=== PATIENT | male | born 1950 | race Caucasian/White ===

== ENCOUNTER 2016-10-24 09:56 | Emergency (ER) | payer OTHER ==
[2016-10-24 10:29] VITALS: BP 132/71; PULSE 85; TEMP 97.9; BMI 22.4
--- NOTE | 2016-10-24 11:22 | PDOC ---
History of Present Illness - General Chief Complaint: Eye Problem Stated Complaint: LT EYE PAIN Time Seen by Provider: 10/24/16 11:20 History Source: Patient Exam Limitations: No Limitations - History of Present Illness Initial Comments: CHIEF COMPLAINT: 66 y/o male c/o left eye redness since yesterday. HISTORY OF PRESENT ILLNESS: The patient states his eyes are always very dry. He was itching his left eye a lot yesterday and it started to get red. He is on Plavix. He denies all other trauma to the eye, foreign body sensation, changes in vision, presence of floaters/curtain falling, pain to eye. He does not wear contacts or glasses. Vital signs on arrival are within normal limits. REVIEW OF SYSTEMS: GENERAL/CONSTITUTIONAL: No fever/chills. No weakness. No weight change. HEAD, EYES, EARS, NOSE AND THROAT: +left eye redness. No change in vision. No ear pain or discharge. No sore throat. MUSCULOSKELETAL: No joint or muscle swelling or pain. No neck or back pain. SKIN: No rash or easy bruising. NEUROLOGIC: No headache, vertigo, loss of consciousness, or loss of sensation. PHYSICAL EXAM: GENERAL: The patient is awake, alert, and fully oriented, in no acute distress. HEAD: Normal with no signs of trauma. ENT: Pupils equal, round and reactive to light, extraocular movements intact, sclera anicteric. Large subconjunctival hemorrhage encompassing entire conjunctiva. Fleuriscien stain reveals no corneal abrasions or ulcerations. No ptosis or proptosis. EXTREMITIES: Normal range of motion, no edema. NEUROLOGICAL: Normal speech, normal gait. CN II-XII grossly intact. SKIN: Warm, dry, normal turgor, no rashes or lesions noted. Past History - Past Medical History Allergies/Adverse Reactions: Allergies Allergy/AdvReac Type Severity Reaction Status Date / Time No Known Allergies Allergy Verified 10/24/16 10:25 Home Medications: Ambulatory Orders Albuterol Sulfate Inhaler - [Ventolin HFA Inhaler -] 2 inh IH Q4H PRN #30 inh Aspirin [ASA -] 81 mg PO DAILY #0 tab.chew 12/11/13 Clopidogrel Bisulfate [Plavix -] 75 mg PO DAILY #0 tablet 12/11/13 Dexlansoprazole [Dexilant -] 60 mg PO DAILY #0 12/11/13 Ezetimibe/Simvastatin [Vytorin 10-20 mg Tablet] 10 - 20 each PO HS #0 tablet Folic Acid/Vitamin B Comp W-C [Renavit Tablet] 0.8 mg PO DAILY #0 tablet Sevelamer Carbonate [Renvela -] 800 mg PO TID #0 tab 12/11/13 Carvedilol 3.125 mg PO BID 01/27/14 Mirtazapine [Remeron -] 7.5 mg PO HS 01/27/14 Tamsulosin HCl [Flomax -] 0.4 mg PO DAILY 04/10/15 Isosorbide Mononitrate 30 mg PO DAILY 06/21/15 Peg 400/Hypromellose/Glycerin [Artificial Tears Drops] 15 ml OU TID #100 drops 10/24/16 Anemia: No Asthma: Yes Cancer: No Cardiac Disorders: Yes (cabg 2000, stents x 4 2011) CVA: No COPD: Yes CHF: No Dementia: No Diabetes: Yes Dialysis: Yes (tu,f[facility]) GI Disorders: No Disorders: No HTN: Yes Hypercholesterolemia: No Kidney Stones: Yes (ESRD) Liver Disease: No Suicide Attempt (Hx): No Seizures: No Thyroid Disease: No - Surgical History Appendectomy: No Cardiac Surgery: Yes (STENTS X4, TRIPLE BYPASS 2000) Cholecystectomy: No Orthopedic Surgery: No - Immunization History Immunization Up to Date: Yes - Psycho/Social/Smoking Cessation Hx Anxiety: No Suicidal Ideation: No Smoking Status: No Smoking History: Former smoker Have you smoked in the past 12 months: No Number of Cigarettes Smoked Daily: 0 If you are a former smoker, when did you quit?: 2000 Cigars Per Day: 0 Information on smoking cessation initiated: No Hx Alcohol Use: No Drug/Substance Use Hx: No Substance Use Type: None Hx Substance Use Treatment: No *Physical Exam - Vital Signs Last Vital Signs Temp Pulse Resp BP Pulse Ox 97.9 F 85 19 132/71 98 10/24/16 10:26 10/24/16 10:26 10/24/16 10:26 10/24/16 10:26 10/24/16 10:26 Medical Decision Making - Medical Decision Making A/P: 66 y/o male with large left eye subconjunctival hemorrhage. Will send rx for artificial tears. Instructed the patient to avoid rubbing his eyes and that the blood will resolve on its own. Pt instructed to f/u with Dr. Burgess within 1 week and return to the ER with any worsening or concerning symptoms. The patient verbalizes understanding of all instructions, has no further questions and is awaiting discharge. *DC/Admit/Observation/Transfer Diagnosis at time of Disposition: Subconjunctival hemorrhage of left eye - Discharge Dispostion Disposition: HOME Condition at time of disposition: Good - Prescriptions Prescriptions: Peg 400/Hypromellose/Glycerin [Artificial Tears Drops] 15 ml OU TID #100 drops - Referrals Referrals: Terry Burgess MD [Primary Care Provider] - - Patient Instructions Printed Discharge Instructions: DI for Subconjunctival Hemorrhage Additional Instructions: Discharge Instructions: -A prescription was sent to your pharmacy for artificial tears to keep your eyes moist -Try not to scratch your eyes -The blood will go away on its own -Please follow up with Dr. Burgess in 1 week -Return to the ER with any worsening or concerning symptoms.
== END 2016-10-24 12:00 | disposition home or self-care (01) ==
LOC: JERFT 09:56
DX: H11.31 Conjunctival hemorrhage, right eye (principal); I25.10 Atherosclerotic heart disease of native coronary artery without angina pectoris; I13.11 Hypertensive heart and chronic kidney disease without heart failure, with stage 5 chronic kidney disease, or end stage renal disease; N18.6 End stage renal disease; Z99.2 Dependence on renal dialysis; Z95.1 Presence of aortocoronary bypass graft; Z95.5 Presence of coronary angioplasty implant and graft; E11.9 Type 2 diabetes mellitus without complications; J44.9 Chronic obstructive pulmonary disease, unspecified; J45.909 Unspecified asthma, uncomplicated
CPT/HCPCS: 99281-25

== ENCOUNTER 2018-09-17 10:08 | Emergency (ER) | payer OTHER ==
[2018-09-17 10:16] VITALS: BP 150/56; PULSE 78; TEMP 97.6; BMI 24.4
[2018-09-17] MEDS ORDERED: ERYTHROMYCIN 0.5% OPHTHALMIC OINTMENT 3.5 GM TUBE OS ONE (11:40)
[2018-09-17] MEDS ORDERED: ERYTHROMYCIN 0.5% OPHTHALMIC OINTMENT 3.5 GM TUBE ONE (11:41)
--- NOTE | 2018-09-17 11:43 | PDOC ---
History of Present Illness - General Chief Complaint: Eye Problem Stated Complaint: LT EYE PAIN Time Seen by Provider: 09/17/18 11:28 History Source: Patient Exam Limitations: No Limitations - History of Present Illness Initial Comments: 09/17/18 11:38 Complaints of left eye pain. States 2 days ago thinks may have scratched his eye and since that time is had worsening pain. States visual acuity is within normal limits, has no drainage from eye but has progressive worsening of pain. Past History - Past Medical History Allergies/Adverse Reactions: Allergies Allergy/AdvReac Type Severity Reaction Status Date / Time No Known Allergies Allergy Verified 09/17/18 10:13 Home Medications: Ambulatory Orders Albuterol Sulfate Inhaler - [Ventolin HFA Inhaler -] 2 inh IH Q4H PRN #30 inh Aspirin [ASA -] 81 mg PO DAILY #0 tab.chew 12/11/13 Clopidogrel Bisulfate [Plavix -] 75 mg PO DAILY #0 tablet 12/11/13 Dexlansoprazole [Dexilant -] 60 mg PO DAILY #0 12/11/13 Ezetimibe/Simvastatin [Vytorin 10-20 mg Tablet] 10 - 20 each PO HS #0 tablet Folic Acid/Vitamin B Comp W-C [Renavit Tablet] 0.8 mg PO DAILY #0 tablet Sevelamer Carbonate [Renvela -] 800 mg PO TID #0 tab 12/11/13 Carvedilol 3.125 mg PO BID 01/27/14 Mirtazapine [Remeron -] 7.5 mg PO HS 01/27/14 Tamsulosin HCl [Flomax -] 0.4 mg PO DAILY 04/10/15 Isosorbide Mononitrate 30 mg PO DAILY 06/21/15 Peg 400/Hypromellose/Glycerin [Artificial Tears Drops] 15 ml OU TID #100 drops 10/24/16 Anemia: No Asthma: Yes Cancer: No Cardiac Disorders: Yes (cabg 2000, stents x 4 2011) CVA: No COPD: Yes CHF: No Dementia: No Diabetes: Yes Dialysis: Yes (,[facility]) GI Disorders: No Disorders: No HTN: Yes Hypercholesterolemia: No Kidney Stones: Yes (ESRD) Liver Disease: No Seizures: No Thyroid Disease: No - Surgical History Appendectomy: No Cardiac Surgery: Yes (STENTS X4, TRIPLE BYPASS 2000) Cholecystectomy: No Orthopedic Surgery: No - Immunization History Immunization Up to Date: Yes - Suicide/Smoking/Psychosocial Hx Smoking Status: No Smoking History: Never smoked Have you smoked in the past 12 months: No Number of Cigarettes Smoked Daily: 0 If you are a former smoker, when did you quit?: 2000 Cigars Per Day: 0 Information on smoking cessation initiated: No Hx Alcohol Use: No Drug/Substance Use Hx: No Substance Use Type: None Hx Substance Use Treatment: No Review of Systems - Review of Systems Able to Perform ROS?: Yes Is the patient limited Swedish proficient: Yes Constitutional: Yes: See HPI. No: Symptoms Reported, Chills, Fever, Malaise HEENTM: Yes: Symptoms Reported, See HPI, Eye Pain, Tearing. No: Recent change in vision Respiratory: No: Symptoms reported All Other Systems: Reviewed and Negative *Physical Exam - Vital Signs Last Vital Signs Temp Pulse Resp BP Pulse Ox 97.6 F 78 16 150/56 L 100 09/17/18 10:14 09/17/18 10:14 09/17/18 10:14 09/17/18 10:14 09/17/18 10:14 - Physical Exam General Appearance: Yes: Nourished, Appropriately Dressed, Apparent Distress, Mild Distress HEENT: positive: KEN, Normal ENT Inspection, TMs Normal, Pharynx Normal, Other (left eye injected, mildly photophobic but cornea appears intact. Patient is within normal limits. Fluorescein staining with slit lamp exam reveals a 2 mm x 1 mm superficial abrasion at 3:00 over the iris of left eye.) Neck: positive: Supple. 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, Fully Oriented, Alert, Normal Mood/ Affect, Normal Response, Motor Strength 5/5 Moderate Sedation - Procedure Monitoring Vital Signs: Procedure Monitoring Vital Signs Temperature 97.6 F 09/17/18 10:14 Pulse Rate 78 09/17/18 10:14 Respiratory Rate 16 09/17/18 10:14 Blood Pressure 150/56 L 09/17/18 10:14 O2 Sat by Pulse Oximetry (%) 100 09/17/18 10:14 Progress Note - Progress Note Progress Note: corneal abrasion, erythromycin ointment applied-= will see OPTHO tomorrow *DC/Admit/Observation/Transfer Diagnosis at time of Disposition: Cornea abrasion Qualifiers: Encounter type: initial encounter Laterality: left Qualified Code(s): S05.02XA - Injury of conjunctiva and corneal abrasion without foreign body, left eye, initial encounter - Discharge Dispostion Disposition: HOME Condition at time of disposition: Stable Decision to Admit order: No - Referrals Referrals: Terry Burgess MD [Primary Care Provider] - - Patient Instructions Printed Discharge Instructions: DI for Corneal Abrasion Additional Instructions: Rest, avoid rubbing eyes Wash hands, use eye drops as directed, wash hands after use May use eye lubricating drops as often as needed erythromycin ointment, one thin film 3 times a day for 5 days Tylenol or ibuprofen for pain relief Avoid contact with others until redness and discharge is gone from eyes. Followup with ophthalmology in one to 2 days for thorough exam Return to emergency department for worsened pain, swelling, vision problems. - Post Discharge Activity Forms/Work/School Notes: Back to Work
== END 2018-09-17 11:50 | disposition home or self-care (01) ==
LOC: JERFT 10:08
DX: S05.02XA Injury of conjunctiva and corneal abrasion without foreign body, left eye, initial encounter (principal); I25.10 Atherosclerotic heart disease of native coronary artery without angina pectoris; I13.11 Hypertensive heart and chronic kidney disease without heart failure, with stage 5 chronic kidney disease, or end stage renal disease; N18.6 End stage renal disease; Z99.2 Dependence on renal dialysis; Z95.1 Presence of aortocoronary bypass graft; Z95.5 Presence of coronary angioplasty implant and graft; E11.9 Type 2 diabetes mellitus without complications; J44.9 Chronic obstructive pulmonary disease, unspecified; J45.909 Unspecified asthma, uncomplicated; Z79.01 Long term (current) use of anticoagulants
CPT/HCPCS: 99281-25

== ENCOUNTER 2018-10-12 06:46 | Inpatient (IN) | payer OTHER ==
--- NOTE | 2018-10-12 07:37 | PDOC ---
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 ENT: Ears normal, nares patent, oropharynx clear without exudates. Moist mucous membranes. NECK: Normal range of motion, supple, no nuchal rigidity LUNGS: Breath sounds equal, clear to auscultation bilaterally. No wheezes, and no crackles. HEART:Regular rate and rhythm, normal S1 and S2 without murmur, rub or gallop. ABDOMEN: Soft, nontender, normoactive bowel sounds. EXTREMITIES: Normal range of motion, no edema. NEUROLOGICAL: Cranial nerves II through XII grossly intact. Normal speech. No focal neurological deficits. SKIN: well healed surgical scar 10/12/18 08:08 - Medical Decision Making 10/12/18 08:09 Pt is tearful and seems confused Pt does follow commands, has no complaints of pain It is unclear the cause of this patients presentation No fever to suggest meningitis or encephalitis Will do CT head to r/o intracranial pathology Pt missed dialysis today on account of his mental state Will need to contact Dr Ivory marks for dialysis today Will r/o ACS or other electrolyte abnormality EKG - NSR rate of 93 bpm, LAD, prominent t waves precordial leads, no st elevation or depression, lateral t wave inversion 10/12/18 08:39 Laboratory Tests 10/12/18 10/12/18 10/12/18 07:27 07:40 07:40 WBC 9.8 Hgb 15.6 Hct 44.8 D Plt Count 112 L POC Glucometer 144 Uric Acid Ammonia Creatine Kinase 296 Troponin I 0.03 10/12/18 10/12/18 07:40 07:40 WBC Hgb Hct Plt Count POC Glucometer Uric Acid 6.0 Ammonia 28.50 Creatine Kinase Troponin I 10/12/18 08:[address] Olmedo Pt apparently fell at dialysis today and was acting confused Will arrange HD CT - no acute intracranial pathology, chronic left frontal infarct Will admit Will treat hyperkalemia
--- NOTE | 2018-10-12 07:41 | PDOC ---
History of Present Illness - General Chief Complaint: Altered Mental Status Stated Complaint: AMS Time Seen by Provider: 10/12/18 07:07 History Source: Old Records, Other (Dialysis) Exam Limitations: Clinical Condition - History of Present Illness Initial Comments: 10/12/18 09:50 Pt is a 68yo M with PMH of ESRD on HD (T,TH,S), CAD s/p Stent and CABG, HTN, HLD , DM? BIBA from [facility] for AMS. Pt is incoherent and stating that he is seeing things when he closes his eyes. When using japanese interpreter, pt kept stating that he came from dialysis and was talking to Chris and seeing his mother. Per Dialysis nurse, pt stated he fell at home and was not oriented at all when he usually is, with BP 203/108 so they sent him here. Pt is not complaining of any pain, just seeing and hearing things. Denies changes in vision, chest pain, seeing floaters, headache, sob, abdominal pain, n/v/d. Is anuric. PMD: Jenifer Renal: Sarkis PMH: see hpi PSH: see hpi Meds: see med rec Allergies: nkda 10/12/18 10:20 Past History - Past Medical History Allergies/Adverse Reactions: Allergies Allergy/AdvReac Type Severity Reaction Status Date / Time No Known Allergies Allergy Verified 10/12/18 07:22 Home Medications: Ambulatory Orders Aspirin Coated [Ecotrin -] 81 mg PO DAILY 10/12/18 Clopidogrel Bisulfate [Plavix] 75 mg PO DAILY 10/12/18 Dialyvite Tablet 1 tab DAILY 10/12/18 Folic Acid - 1 mg PO DAILY 10/12/18 Metoprolol Succinate [Toprol Xl] 25 mg PO 10/12/18 Sevelamer Carbonate [Renvela] 800 mg PO TID 10/12/18 Sodium Polystyrene 15 mg PO 10/12/18 Tamsulosin HCl [Flomax] 0.4 mg PO DAILY 10/12/18 Anemia: No Asthma: Yes Cancer: No Cardiac Disorders: Yes (cabg 2000, stents x 4 2011) CVA: No COPD: Yes CHF: No Dementia: No Diabetes: Yes Dialysis: Yes (,sun) GI Disorders: No Disorders: No HTN: Yes Hypercholesterolemia: No Kidney Stones: Yes (ESRD) Liver Disease: No Seizures: No Thyroid Disease: No - Surgical History Appendectomy: No Cardiac Surgery: Yes (STENTS X4, TRIPLE BYPASS 2000) Cholecystectomy: No Orthopedic Surgery: No - Immunization History Immunization Up to Date: Yes - Suicide/Smoking/Psychosocial Hx Smoking Status: No Smoking History: Unknown if ever smoked Have you smoked in the past 12 months: No Number of Cigarettes Smoked Daily: 0 If you are a former smoker, when did you quit?: 2000 Cigars Per Day: 0 Information on smoking cessation initiated: No Hx Alcohol Use: No Drug/Substance Use Hx: No Substance Use Type: None Hx Substance Use Treatment: No Review of Systems - Review of Systems Able to Perform ROS?: No *Physical Exam - Vital Signs Last Vital Signs Temp Pulse Resp BP Pulse Ox 97.3 F L 97 H 18 138/80 98 10/12/18 07:17 10/12/18 06:51 10/12/18 06:51 10/12/18 06:51 10/12/18 06:51 - Physical Exam General Appearance: Yes: Nourished, Appropriately Dressed, Moderate Distress HEENT: positive: EOMI, KEN, Normal ENT Inspection Neck: positive: Trachea midline, Supple. negative: Lymphadenopathy (R), Lymphadenopathy (L) Respiratory/Chest: positive: Lungs Clear, Normal Breath Sounds. negative: Crackles, Rales, Wheezing Cardiovascular: positive: Regular Rhythm, Regular Rate, S1, S2. negative: Edema , JVD, Murmur Vascular Pulses: Carotid (R): 2+, Carotid (L): 2+, Dorsalis-Pedis (R): 2+, Doralis-Pedis (L): 2+ Gastrointestinal/Abdominal: positive: Normal Bowel Sounds, Soft. negative: Tender Extremity: positive: Normal Capillary Refill, Other (palpable thrill LUE). negative: Pedal Edema, Swelling Integumentary: positive: Normal Color, Dry, Warm. 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 negative: Normal Mood/Affect Moderate Sedation - Procedure Monitoring Vital Signs: Procedure Monitoring Vital Signs Temperature 97.3 F L 10/12/18 07:17 Pulse Rate 97 H 10/12/18 06:51 Respiratory Rate 18 10/12/18 06:51 Blood Pressure 138/80 10/12/18 06:51 O2 Sat by Pulse Oximetry (%) 98 10/12/18 06:51 ED Treatment Course - LABORATORY CBC & Chemistry Diagram: 10/12/18 07:40 10/12/18 07:40 - ADDITIONAL ORDERS Additional order review: Laboratory Results 10/12/18 07:27 POC Glucometer 144 10/12/18 07:27 POC Glucometer 144 - RADIOLOGY Radiology Studies Ordered: Category Date Time Status HEAD CT WITHOUT CONTRAST [CT] Stat CT Scan 10/12/18 07:30 Ordered CHEST X-RAY PORTABLE* [RAD] Stat Radiology 10/12/18 07:30 Ordered Medical Decision Making - Medical Decision Making 10/12/18 10:02 Pt is a 68yo M with PMH of ESRD on HD (T,TH,S), CAD s/p Stent and CABG, HTN, HLD , DM? BIBA from [facility] for AMS. Pt is incoherent and stating that he is seeing things when he closes his eyes. When using japanese interpreter, pt kept stating that he came from dialysis and was talking to Chris and seeing his mother. Per Dialysis nurse, pt stated he fell at home and was not oriented at all when he usually is, so they sent him here. Pt is not complaining of any pain, just seeing and hearing things. Vitals: slightly hypothermic, hypertensive PE: AOx3. Benign abdominal exam, no fluid wave. Following commands. Ddx includes but not limited to encephalopathy, intracranial mass/bleed/lesion, hypertensive emergency/urgency, metabolic disturbance, electrolyte imbalance, infectious cause, meningitis, acs -sepsis w/u, ammonia, uric acid -ekg, CT head, CXR Tried calling daughter and , no answer Called Dialysis center which told some history EKG: nsr, 93bpm. QTc 465. peaked T in V1-V3. normal QRS (96). no jeremy or depressions. Called Dr. Mike Sanchez employee relations consultant who stated that he was called by dialysis who said that he was told pt fell and was confused. Labs significant for K 6.1 and Cr 11. -calcium gluconate. Dr. Mckeon recommended insulin as well. Will give D50 and 10 units. labetalol, nicardepine drip. Could have hypertensive encephalopathy. will consult ICU and call Dr. Kent CXR- congestive changes, more prominent mediastinum however could be due to low inspiratory effort. CT head: no acute pathology, small chronic l frontal cortical infarct medially. mild to mod periventricular chornoic microvascular ischemic changes. 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 will call back 10/12/18 19:34 BP getting better with medications. Does not meet requirement for ICU. Pt endorsed to Dr Kent will admit tele. Will hopefully get dialysis today Selected Entries 10/12/18 11:44 Pulse Rate [ 83 Apical] Respiratory 18 Rate Blood Pressure 159/73 [Right Arm] O2 Sat by Pulse 98 Oximetry (%) *DC/Admit/Observation/Transfer Diagnosis at time of Disposition: Hyperkalemia Altered mental status Qualifiers: Altered mental status type: delirium Qualified Code(s): R41.0 - Disorientation , unspecified - Discharge Dispostion Condition at time of disposition: Good - Referrals - Patient Instructions - Post Discharge Activity
[2018-10-12 08:13] LABS: BASO % 0.4 % (0-2.0); EOS % 0.7 % (0-4.5); HEMATOCRIT 44.8 % (35.4-49); HEMOGLOBIN 15.6 GM/dL (11.7-16.9); MCH 35.8 pg (25.7-33.7); MCHC 34.9 g/dl (32.0-35.9); MEAN CELL VOLUME 102.6 fl (80-96); MEAN PLT VOLUME 8.7 fl (7.5-11.1); MONO % 5.6 % (3.8-10.2); NEUT % 87.3 % (42.8-82.8); PLATELET COUNT 112 K/MM3 (134-434); RBC 4.37 M/mm3 (4.00-5.60); RDW 15.8 % (11.9-15.9); WHITE BLOOD COUNT 9.8 K/mm3 (4.0-10.0)
[2018-10-12 08:15] LABS: VENOUS PC02 38.9 mmHg (41-51); VENOUS PH 7.28 (7.31-7.41); VENOUS PO2 72.4 mmHg (30-40)
[2018-10-12 08:42] LABS: ALBUMIN 4.5 g/dl (3.4-5.0); ALK PHOS 109 U/L (45-117); ANION GAP 12 MMOL/L (8-16); BILIRUBIN,TOTAL 0.8 mg/dL (0.2-1); BLOOD UREA NITROGEN 60 mg/dL (7-18); CALCIUM 8.2 mg/dL (8.5-10.1); CHLORIDE 104 mmol/L (98-107); CO2 18 mmol/L (21-32); GLUCOSE,RANDOM 136 mg/dL (74-106); MAGNESIUM 2.7 mg/dL (1.8-2.4); SGOT/AST 19 U/L (15-37); SGPT/ALT 20 U/L (13-61); SODIUM 134 mmol/L (136-145); TOT PROT 7.9 g/dl (6.4-8.2)
[2018-10-12 08:46] LABS: CREATININE 11.9 mg/dL (0.55-1.3)
[2018-10-12 08:47] LABS: POTASSIUM 6.3 mmol/L (3.5-5.1)
[2018-10-12] MEDS ORDERED: INSULIN REGULAR HUMAN 100 UNITS/ML *VIAL IVPUSH ONE (08:59)
[2018-10-12] MEDS ORDERED: CALCIUM GLUCONATE 10% - 1,000 MG/10 ML VIAL IVPUSH ONE (08:59)
[2018-10-12] MEDS ORDERED: DEXTROSE 50%-WATER - 25 GM/50 ML VIAL IVPUSH ONE (08:59)
[2018-10-12] MEDS ORDERED: DEXTROSE 50%-WATER - 25 GM/50 ML VIAL ONE (09:23)
[2018-10-12] MEDS ORDERED: CALCIUM GLUCONATE 10% - 1,000 MG/10 ML VIAL ONE (09:23)
[2018-10-12] MEDS ORDERED: INSULIN REGULAR HUMAN 100 UNITS/ML *VIAL ONE (09:24)
--- NOTE | 2018-10-12 09:27 | CONSULT ---
Consult - text type - Consultation Consultation Note: Renal Consult for ESRD/Hyperkalemia This is a 68 year old Gentleman with hx of ESRD on HD, COPD, Hypertension, CAD who presented with fall and AMS and found to have hypertension urgency/hypertension, encephalopathy and hyperkalemia. Home Medications Medication Instructions Recorded Unobtainable 10/12/18 Vital Signs Temperature 97.6 F 10/12/18 07:56 Pulse Rate 95 H 10/12/18 08:31 Respiratory Rate 20 10/12/18 08:31 Blood Pressure 195/85 H 10/12/18 08:31 O2 Sat by Pulse Oximetry (%) 98 10/12/18 08:31 Intake & Output 10/09/18 10/10/18 10/11/18 10/12/18 23:59 23:59 23:59 23:59 Weight 74.843 kg CBC, BMP 10/12/18 07:40 10/12/18 07:40 Current Medications Nicardipine HCl 25 mg/ (Dextrose) 250 mls @ 25 mls/hr IVPB TITR NIKO; Protocol 68 year old Gentleman with hx of ESRD on HD, COPD, Hypertension, CAD who presented with fall and AMS and found to have hypertension urgency/ hypertension, encephalopathy and hyperkalemia. #Altered Mental status #Hypertensive Emergency #s/p Fall #Hyperkalemia #ESRD on HD #Metabolic acidosis Recommend ICU admission for AMS in setting of hypertensive emergency Start nicardipine gtt Will need urgent HD with UF for hyperkalemia and hypertension unlikely that uremia is cause of AMS given BUN is only 60 Neurology consult f/u cultures Goal BP ~170-180 systolic Thank you
[2018-10-12] MEDS ORDERED: SODIUM CHLORIDE 250 ML IV PRN (09:30)
[2018-10-12] MEDS ORDERED: NICARDIPINE 25 MG in DEXTROSE 5%-WATER - 240 ML IVPB SCH (09:30)
[2018-10-12] MEDS ORDERED: CARVEDILOL 3.125 MG TABLET (FP) PO ONE (09:37)
[2018-10-12] MEDS ORDERED: LABETALOL HCL 5 MG/1 ML (100MG/20 ML VIAL) IVPUSH ONE (09:37)
[2018-10-12] MEDS ORDERED: CARVEDILOL 3.125 MG TABLET (FP) ONE (09:48)
[2018-10-12] MEDS ORDERED: LABETALOL HCL 5 MG/1 ML (200MG/40ML VIAL) IVPB ONE (09:48)
[2018-10-12 10:11] LABS: INR 1.07 (0.82-1.09)
[2018-10-12 10:18] LABS: ACTIVATED PTT 26.7 SECONDS (25.2-36.5)
--- NOTE | 2018-10-12 15:34 | CONSULT ---
Consult - text type - Consultation Consultation Note: NEUROLOGY CONSULTATION is greatly appreciated: Events reviewed and patient examined with his at the bedside who aides in translation. 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 Admitted after found him confused yesterday morning and he fell at HD (not performed). CT of head (reviewed): Mild atrophy with diffuse periventricular microvascular changes Labs sig for K+=6.9 mg%, Cr= 11.9 mg% and EFH=353.6 DRAGAN: No evidence of head trauma. Cor reg. AV fistula patent with bruit. No carotid bruit NEURO: Awake, alert. Follows all commands. Fluent, confused speech. Ox Annona's. September 2018. Trump. Recalls SJ after 2 mins CN: II-XII normal Motor: No drift. Frequent myoclonic jerks. Normal strength. Areflexic in legs. Plantars silent. Coord: No FTN dystaxia Sensory: Feels vibration at the ankles IMP: Non-focal exam Moderate, B/L cerebral dysfunction with features of Toxic-metabolic encephalopathy (probably uremia + infection). SUGGEST: Observe after Dialysis today Await blood cultures/ ID consult. Check B12, TSH, Ammonia, spot K+ level. If no improvement after HD- repeat CT of head, consider empirical antibiotics. Continue BP control. Thank you very much, Mike Bernstein mD
[2018-10-12 15:35] VITALS: BMI 25.4
--- NOTE | 2018-10-12 17:01 | EKG ---
Test Reason : Blood Pressure : / mmHG Vent. Rate : 093 BPM Atrial Rate : 093 BPM P-R Int : 160 ms QRS Dur : 096 ms QT Int : 374 ms P-R-T Axes : 021 -30 097 degrees QTc Int : 465 ms NORMAL SINUS RHYTHM LEFT AXIS DEVIATION ABNORMAL ECG WHEN COMPARED WITH ECG OF 18-MAY-2015 05:08, QRS AXIS SHIFTED LEFT T WAVE INVERSION LESS EVIDENT IN LATERAL LEADS Confirmed by ABHISHEK ABURTO, EMANUEL ([id number]) on 10/12/2018 5:01:00 PM Referred By: Confirmed By:EMANUEL WEISS MD
--- NOTE | 2018-10-12 21:47 | HP ---
Admitting History and Physical - Past Medical History Cardiovascular: Yes: CAD, CHF, HTN, Hyperlipdemia Pulmonary: Yes: COPD Renal/: Yes: Renal Failure, Hemodialysis Psych: Yes: Anxiety Endocrine: Yes: Diabetes Mellitus - Past Surgical History Past Surgical History: Yes: AV Fistula/Graft (multiple, non functional), CABG, Stent (cardiac) - Smoking History Smoking history: Unknown if ever smoked Have you smoked in the past 12 months: No Aproximately how many cigarettes per day: 0 If you are a former smoker, when did you quit?: 2000 - Alcohol/Substance Use Hx Alcohol Use: No History of Substance Use: reports: None - Social History ADL: Independent History of Recent Travel: No Home Medications - Allergies Allergies/Adverse Reactions: Allergies Allergy/AdvReac Type Severity Reaction Status Date / Time No Known Allergies Allergy Verified 10/12/18 07:22 - Home Medications Home Medications: Ambulatory Orders Aspirin Coated [Ecotrin -] 81 mg PO DAILY 10/12/18 Clopidogrel Bisulfate [Plavix] 75 mg PO DAILY 10/12/18 Dialyvite Tablet 1 tab DAILY 10/12/18 Folic Acid - 1 mg PO DAILY 10/12/18 Metoprolol Succinate [Toprol Xl] 25 mg PO 10/12/18 Sevelamer Carbonate [Renvela] 800 mg PO TID 10/12/18 Sodium Polystyrene 15 mg PO 10/12/18 Tamsulosin HCl [Flomax] 0.4 mg PO DAILY 10/12/18 Family Disease History - Family Disease History Family Disease History: [place]: Brother (ESRD), Other: Mother (ESRD) Physical Examination Vital Signs: Vital Signs Temperature 97.6 F 10/12/18 18:00 Pulse Rate 93 H 10/12/18 19:37 Respiratory Rate 18 10/12/18 19:37 Blood Pressure 123/60 10/12/18 19:37 O2 Sat by Pulse Oximetry (%) 98 10/12/18 12:45 Labs: CBC, BMP 10/12/18 07:40 10/12/18 07:40
[2018-10-12] MEDS: INSULIN SLIDING SCALE (NOVOLOG) 1 VIAL SQ SCH (22:22)
[2018-10-13] MEDS: INSULIN SLIDING SCALE (NOVOLOG) 1 VIAL SQ SCH ×4 (07:02→22:02)
[2018-10-13 07:56] LABS: BASO % 0.4 % (0-2.0); EOS % 2.5 % (0-4.5); HEMATOCRIT 43.9 % (35.4-49); HEMOGLOBIN 15.2 GM/dL (11.7-16.9); LYMPH % 14.6 % (8-40); MCH 35.1 pg (25.7-33.7); MCHC 34.6 g/dl (32.0-35.9); MEAN CELL VOLUME 101.5 fl (80-96); MEAN PLT VOLUME 8.2 fl (7.5-11.1); NEUT % 73.5 % (42.8-82.8); PLATELET COUNT 106 K/MM3 (134-434); RBC 4.32 M/mm3 (4.00-5.60); RDW 15.7 % (11.9-15.9); WHITE BLOOD COUNT 6.3 K/mm3 (4.0-10.0)
[2018-10-13] MEDS: SEVELAMER CARBONATE 800 MG TAB (FP) PO SCH ×3 (08:00→19:47)
[2018-10-13 08:28] LABS: ALBUMIN 4.1 g/dl (3.4-5.0); ALK PHOS 100 U/L (45-117); ANION GAP 8 MMOL/L (8-16); BLOOD UREA NITROGEN 25 mg/dL (7-18); CALCIUM 8.5 mg/dL (8.5-10.1); CHLORIDE 102 mmol/L (98-107); CO2 30 mmol/L (21-32); GLUCOSE,RANDOM 96 mg/dL (74-106); POTASSIUM 4.8 mmol/L (3.5-5.1); SGOT/AST 28 U/L (15-37); SGPT/ALT 26 U/L (13-61); SODIUM 140 mmol/L (136-145); TOT PROT 7.4 g/dl (6.4-8.2)
[2018-10-13 09:37] LABS: CREATININE 7.6 mg/dL (0.55-1.3)
--- NOTE | 2018-10-13 11:39 | PN ---
Progress Note (short form) - Note Progress Note: Renal follow up for ESRD/AMS Pt seen and examined at the bedside awake and alert oriented x 3 no acute complaints s/p dialysis yesterday, tolerated it well BP much improved Vital Signs Temperature 97.8 F 10/13/18 06:00 Pulse Rate 88 10/13/18 06:00 Respiratory Rate 20 10/13/18 06:00 Blood Pressure 147/71 10/13/18 06:00 O2 Sat by Pulse Oximetry (%) 98 10/12/18 21:00 Intake & Output 10/10/18 10/11/18 10/12/18 10/13/18 23:59 23:59 23:59 23:59 Intake Total 360 Balance 360 Weight 61.054 kg NAD awake and alert neck supple RRR CTA soft NT/ND no LE edema CBC, BMP 10/13/18 06:30 10/13/18 06:30 Current Medications Acetaminophen (Tylenol -) 650 mg PO Q4H PRN PRN Reason: PAIN SCALE 1-5 Aspirin (Ecotrin -) 81 mg PO DAILY [facility] Clopidogrel Bisulfate (Plavix -) 75 mg PO DAILY [facility] Folic Acid (Folic Acid -) 1 mg PO DAILY [facility] Heparin Sodium (Porcine) (Heparin -) 5,000 unit SQ BID [facility] Sodium Chloride (Normal Saline -) 250 mls @ 3,000 mls/hr IV PRN PRN PRN Reason: Hypotension during Dialysis Stop: 10/13/18 09:30 Insulin Aspart (Novolog Vial Sliding Scale -) 1 vial SQ ACHS [facility]; Protocol Last Admin: 10/13/18 07:02 Dose: Not Given Metoprolol Succinate (Toprol Xl -) 25 mg PO DAILY [facility] Multivitamins/Minerals (Theragran-M) 1 each PO DAILY [facility] Sevelamer Carbonate (Renvela -) 800 mg PO TIDCM [facility] Tamsulosin HCl (Flomax -) 0.4 mg PO DAILY@0830 [facility] 68 year old Gentleman with hx of ESRD on HD, COPD, Hypertension, CAD who presented with fall and AMS and found to have hypertension urgency/ hypertension, encephalopathy and hyperkalemia. #Altered Mental status of unclear etiology #Hypertensive Emergency #s/p Fall #Hyperkalemia #ESRD on HD #Metabolic acidosis Mental status is much improved CT head w/o evidence of acute pathology no fever, no leukocytosis, cultures remains pending tolerated dialysis well yesterday, no acute need for further [employer]ATE today Neurology follow up continue Metoprolol, monitor BP Thank you
[2018-10-13] MEDS: FOLIC ACID 1 MG TABLET (FP) PO SCH (11:49)
[2018-10-13] MEDS: CLOPIDOGREL BISULFATE 75 MG TABLET (FP) PO SCH (11:49)
[2018-10-13] MEDS: HEPARIN NA (PORCINE) 5,000 UNITS/ML 1ML VIAL SQ SCH ×2 (11:50→22:02)
[2018-10-13] MEDS: MULTIVITAMINS THER W-MINERALS COMBO TABLET (FP) PO SCH (11:50)
[2018-10-13] MEDS: metoPROLOL SUCCINATE 25 MG TAB.SR.24H (FP) PO SCH (11:50)
[2018-10-13] MEDS: TAMSULOSIN HCL 0.4 MG CAP PO SCH (11:50)
[2018-10-13] MEDS: ASPIRIN COATED 81 MG TABLET.EC PO SCH (11:50)
--- NOTE | 2018-10-13 23:37 | PN ---
Progress Note, Physician History of Present Illness: Pt eating - Current Medication List Current Medications: Active Medications Acetaminophen (Tylenol -) 650 mg PO Q4H PRN PRN Reason: PAIN SCALE 1-5 Aspirin (Ecotrin -) 81 mg PO DAILY [facility] Last Admin: 10/13/18 11:50 Dose: 81 mg Clopidogrel Bisulfate (Plavix -) 75 mg PO DAILY [facility] Last Admin: 10/13/18 11:49 Dose: 75 mg Folic Acid (Folic Acid -) 1 mg PO DAILY [facility] Last Admin: 10/13/18 11:49 Dose: 1 mg Heparin Sodium (Porcine) (Heparin -) 5,000 unit SQ BID [facility] Last Admin: 10/13/18 22:02 Dose: 5,000 unit Sodium Chloride (Normal Saline -) 250 mls @ 3,000 mls/hr IV PRN PRN PRN Reason: Hypotension during Dialysis Stop: 10/13/18 09:30 Insulin Aspart (Novolog Vial Sliding Scale -) 1 vial SQ ACHS [facility]; Protocol Last Admin: 10/13/18 22:02 Dose: Not Given Metoprolol Succinate (Toprol Xl -) 25 mg PO DAILY [facility] Last Admin: 10/13/18 11:50 Dose: 25 mg Multivitamins/Minerals (Theragran-M) 1 each PO DAILY [facility] Last Admin: 10/13/18 11:50 Dose: 1 each Sevelamer Carbonate (Renvela -) 800 mg PO TIDCM [facility] Last Admin: 10/13/18 19:47 Dose: 800 mg Tamsulosin HCl (Flomax -) 0.4 mg PO DAILY@0830 [facility] Last Admin: 10/13/18 11:50 Dose: 0.4 mg - Objective Vital Signs: Vital Signs Temperature 97.9 F 10/13/18 22:01 Pulse Rate 78 10/13/18 22:01 Respiratory Rate 18 10/13/18 22:01 Blood Pressure 159/79 10/13/18 22:01 O2 Sat by Pulse Oximetry (%) 98 10/12/18 21:00 Neck: Yes: WNL, Supple Cardiovascular: Yes: WNL, Regular Rate and Rhythm Respiratory: Yes: WNL, Regular, CTA Bilaterally Gastrointestinal: Yes: WNL, Normal Bowel Sounds, Soft Edema: No Labs: CBC, BMP 10/13/18 06:30 10/13/18 06:30 INR, PTT INR 1.07 (0.82-1.09) 10/12/18 07:40 Problem List - Problems (1) Altered mental status Assessment/Plan: CT scan head did not show any acute pathology Mental status improved Metabolic encephalopathy Code(s): R41.82 - ALTERED MENTAL STATUS, UNSPECIFIED Qualifiers: Altered mental status type: delirium Qualified Code(s): R41.0 - Disorientation, unspecified (2) Elevated troponin Assessment/Plan: Due to renal disease Check echo Cardio consult Code(s): R74.8 - ABNORMAL LEVELS OF OTHER SERUM ENZYMES (3) Anemia in ESRD (end-stage renal disease) Assessment/Plan: H/H stable Code(s): N18.6 - END STAGE RENAL DISEASE; D63.1 - ANEMIA IN CHRONIC KIDNEY DISEASE (4) CAD (coronary artery disease) Assessment/Plan: Cont plavix Code(s): I25.10 - ATHSCL HEART DISEASE OF [place] CORONARY ARTERY W/O ANG PCTRS Qualifiers: Coronary Disease-Associated Artery/Lesion type: [place] artery [place] vs. transplanted heart: [place] heart Associated angina: without angina Qualified Code(s): I25.10 - Atherosclerotic heart disease of [place] coronary artery without angina pectoris (5) COPD (chronic obstructive pulmonary disease) Assessment/Plan: Stable Code(s): J44.9 - CHRONIC OBSTRUCTIVE PULMONARY DISEASE, UNSPECIFIED (6) ESRD on hemodialysis Assessment/Plan: As per renal Pt on hemodialysis Code(s): N18.6 - END STAGE RENAL DISEASE; Z99.2 - DEPENDENCE ON RENAL DIALYSIS (7) Hyperlipidemia Code(s): E78.5 - HYPERLIPIDEMIA, UNSPECIFIED Qualifiers: Hyperlipidemia type: unspecified hyperlipidemia Qualified Code(s): E78.5 - Hyperlipidemia, unspecified (8) Hypertension Assessment/Plan: BP stable Cont toprol Code(s): I10 - ESSENTIAL (PRIMARY) HYPERTENSION Qualifiers: Hypertension type: essential hypertension Qualified Code(s): I10 - Essential (primary) hypertension (9) Type 2 diabetes mellitus Assessment/Plan: Cont sliding scale w/ coverage Check HgA1c Code(s): E11.9 - TYPE 2 DIABETES MELLITUS WITHOUT COMPLICATIONS Qualifiers: Diabetes mellitus complication status: without complication Qualified Code( s): E11.9 - Type 2 diabetes mellitus without complications
[2018-10-14] MEDS: INSULIN SLIDING SCALE (NOVOLOG) 1 VIAL SQ SCH ×4 (06:46→21:47)
[2018-10-14 08:17] LABS: BASO % 0.5 % (0-2.0); HEMOGLOBIN 15.7 GM/dL (11.7-16.9); MCHC 34.9 g/dl (32.0-35.9); MEAN CELL VOLUME 103.3 fl (80-96); MEAN PLT VOLUME 8.5 fl (7.5-11.1); MONO % 8.5 % (3.8-10.2); PLATELET COUNT 109 K/MM3 (134-434); RBC 4.36 M/mm3 (4.00-5.60); RDW 15.5 % (11.9-15.9); WHITE BLOOD COUNT 6.5 K/mm3 (4.0-10.0)
[2018-10-14 08:49] LABS: ALBUMIN 4.1 g/dl (3.4-5.0); ALK PHOS 96 U/L (45-117); ANION GAP 10 MMOL/L (8-16); BILIRUBIN,TOTAL 0.8 mg/dL (0.2-1); BLOOD UREA NITROGEN 53 mg/dL (7-18); CALCIUM 8.6 mg/dL (8.5-10.1); CHLORIDE 100 mmol/L (98-107); CO2 27 mmol/L (21-32); GLUCOSE,RANDOM 137 mg/dL (74-106); POTASSIUM 5.3 mmol/L (3.5-5.1); SGOT/AST 23 U/L (15-37); SGPT/ALT 26 U/L (13-61); SODIUM 137 mmol/L (136-145); TOT PROT 7.4 g/dl (6.4-8.2)
--- NOTE | 2018-10-14 08:52 | CON.CARD ---
Consult Consult Specialty:: Cardiology Referred by:: Dr. Kent Reason for Consultation:: Cardiac evaluation - History of Present Illness Chief Complaint: Disorientation History of Present Illness: "68yo M with PMH of ESRD on HD (,,), CAD s/p Stent and CABG, HTN, HLD, DM? BIBA from [facility] for AMS. Pt is incoherent and stating that he is seeing things when he closes his eyes. When using cosmetic sales assistant, pt kept stating that he came from dialysis and was talking to Chris and seeing his mother. Per Dialysis nurse, pt stated he fell at home and was not oriented at all when he usually is, with BP 203/108 so they sent him here. Pt is not complaining of any pain, just seeing and hearing things. Denies changes in vision, chest pain, seeing floaters, headache, sob, abdominal pain, n/v/d. Is anuric. " Above ER history reviewed. He denies CP, SOB, fevers, chills. He reports being at HD and not being able to get through a gait at HD because of "heavy wind". Head CT negative. He reports being started on an antibiotic for an eye infection . No focal neuro deficits. - History Source History Provided By: Patient, Medical Record - Past Medical History Cardio/Vascular: Yes: CAD, CHF, HTN, Hyperlipdemia Pulmonary: Yes: COPD Renal/: Yes: Renal Failure, Hemodialysis Psych: Yes: Anxiety Endocrine: Yes: Diabetes Mellitus - Past Surgical History Past Surgical History: Yes: AV Fistula/Graft (multiple, non functional), CABG, Stent (cardiac) - Alcohol/Substance Use Hx Alcohol Use: No History of Substance Use: reports: None - Smoking History Smoking history: Unknown if ever smoked Have you smoked in the past 12 months: No Aproximately how many cigarettes per day: 0 If you are a former smoker, when did you quit?: 2000 - Social History ADL: Independent History of Recent Travel: No Home Medications - Allergies Allergies/Adverse Reactions: Allergies Allergy/AdvReac Type Severity Reaction Status Date / Time No Known Allergies Allergy Verified 10/12/18 07:22 - Home Medications Home Medications: Ambulatory Orders Aspirin Coated [Ecotrin -] 81 mg PO DAILY 10/12/18 Clopidogrel Bisulfate [Plavix] 75 mg PO DAILY 10/12/18 Dialyvite Tablet 1 tab DAILY 10/12/18 Folic Acid - 1 mg PO DAILY 10/12/18 Metoprolol Succinate [Toprol Xl] 25 mg PO 10/12/18 Sevelamer Carbonate [Renvela] 800 mg PO TID 10/12/18 Sodium Polystyrene 15 mg PO 10/12/18 Tamsulosin HCl [Flomax] 0.4 mg PO DAILY 10/12/18 Family Disease History - Family Disease History Family Disease History: [place]: Brother (ESRD), Other: Mother (ESRD) Review of Systems Findings/Remarks: see HPI - Review of Systems Constitutional: reports: Weakness Eyes: reports: No Symptoms HENT: reports: No Symptoms Neck: reports: No Symptoms Cardiovascular: reports: No Symptoms Respiratory: reports: No Symptoms Gastrointestinal: reports: No Symptoms Genitourinary: reports: No Symptoms Breasts: reports: No Symptoms Reported Musculoskeletal: reports: No Symptoms Integumentary: reports: No Symptoms Neurological: reports: No Symptoms Endocrine: reports: No Symptoms Hematology/Lymphatic: reports: No Symptoms Psychiatric: reports: No Symptoms - Risk Factors Known Risk Factors: Yes: Diabetes Mellitus, Prior [place] /Emb Stroke Vital Signs: Vital Signs Temperature 98.1 F 10/14/18 06:00 Pulse Rate 76 10/14/18 06:00 Respiratory Rate 18 10/14/18 06:00 Blood Pressure 158/67 10/14/18 06:00 O2 Sat by Pulse Oximetry (%) 98 10/13/18 21:00 Constitutional: Yes: No Distress, Calm Eyes: Yes: Conjunctiva Clear Respiratory: Yes: CTA Bilaterally Gastrointestinal: Yes: Soft Carotid Bruit: No PMI: Non-Displaced Heart Sounds: Yes: S1, S2 Murmur: Yes: Systolic Murmur (right sternal border) Edema: No Neurological: Yes: Alert, Other (grossly nonfocal) - Other Data Labs, Other Data: CBC, BMP 10/14/18 07:30 10/14/18 07:30 INR, PTT INR 1.07 (0.82-1.09) 10/12/18 07:40 Troponin, BNP 10/13/18 10/14/18 16:50 07:30 Troponin I 0.09 H 0.06 H Troponin, BNP 10/13/18 10/14/18 16:50 07:30 Troponin I 0.09 H 0.06 H Microbiology 05/18/15 04:30 Blood - Peripheral Venous Blood Culture - Preliminary NO GROWTH OBTAINED AFTER 72 HOURS, INCUBATION TO CONTINUE FOR 2 DAYS. 05/18/15 04:30 Blood - Peripheral Venous Blood Culture - Preliminary NO GROWTH OBTAINED AFTER 72 HOURS, INCUBATION TO CONTINUE FOR 2 DAYS. 10/12/18 07:50 Blood - Peripheral Venous Blood Culture - Preliminary NO GROWTH OBTAINED AFTER 48 HOURS, INCUBATION TO CONTINUE FOR 3 DAYS. 10/12/18 07:50 Blood - Peripheral Venous Blood Culture - Preliminary NO GROWTH OBTAINED AFTER 48 HOURS, INCUBATION TO CONTINUE FOR 3 DAYS. Laboratory Tests 05/21/15 05/21/15 10/12/18 06:15 06:15 15:55 WBC 5.0 Hgb 11.0 L Plt Count 115 L Sodium 139 Potassium 4.4 D Anion Gap Creatinine Random Glucose Total Bilirubin AST ALT Alkaline Phosphatase Creatine Kinase Troponin I Hep Bs Antibody Pending Hep B Core Total Ab Pending Hep C Ab Diagnostic 10/12/18 10/13/18 10/14/18 15:55 16:50 07:30 WBC 6.5 Hgb 15.7 Plt Count 109 L Sodium Potassium Anion Gap Creatinine Random Glucose Total Bilirubin AST ALT Alkaline Phosphatase Creatine Kinase Troponin I 0.09 H Hep Bs Antibody Hep B Core Total Ab Hep C Ab Diagnostic Pending 10/14/18 07:30 WBC Hgb Plt Count Sodium 137 Potassium 5.3 H Anion Gap 10 Creatinine Pending Random Glucose 137 H Total Bilirubin 0.8 AST 23 ALT 26 Alkaline Phosphatase 96 Creatine Kinase 188 Troponin I 0.06 H Hep Bs Antibody Hep B Core Total Ab Hep C Ab Diagnostic NSR 93 93, Left axis, NSST Echo: Pending Imaging - Results Chest X-ray: Report Reviewed Cat Scan: Report Reviewed, Image Reviewed EKG: Image Reviewed Problem List - Problems (1) Altered mental status Code(s): R41.82 - ALTERED MENTAL STATUS, UNSPECIFIED Qualifiers: Altered mental status type: delirium Qualified Code(s): R41.0 - Disorientation, unspecified (2) Hyperkalemia Code(s): E87.5 - HYPERKALEMIA (3) CAD (coronary artery disease) Code(s): I25.10 - ATHSCL HEART DISEASE OF [place] CORONARY ARTERY W/O ANG PCTRS Qualifiers: Coronary Disease-Associated Artery/Lesion type: [place] artery [place] vs. transplanted heart: [place] heart Associated angina: without angina Qualified Code(s): I25.10 - Atherosclerotic heart disease of [place] coronary artery without angina pectoris (4) COPD (chronic obstructive pulmonary disease) Code(s): J44.9 - CHRONIC OBSTRUCTIVE PULMONARY DISEASE, UNSPECIFIED (5) ESRD on hemodialysis Code(s): N18.6 - END STAGE RENAL DISEASE; Z99.2 - DEPENDENCE ON RENAL DIALYSIS (6) Type 2 diabetes mellitus Code(s): E11.9 - TYPE 2 DIABETES MELLITUS WITHOUT COMPLICATIONS Qualifiers: Diabetes mellitus complication status: without complication Qualified Code( s): E11.9 - Type 2 diabetes mellitus without complications Assessment/Plan IMP: 1.Altered mental status 2.Hyperkalemia 3.ESRD on HD 4.CAD s/p CABG: S/p cath recently: SVG RCA and LCx chronic occlusion, NAVA patent, no change 5.Chronic stable angina 6. HTN 7. Carotid disease- moderate Head CT negative; Neuro exam nonfocal REC: 1. The equivocal TnI is unlikely due to ACS. It is likely due to chronic CAD, diastolic dysfx in the setting of CKD. 2. Initial change in mental status is likely secondary to toxic/metabolic changes: elevated K+, marked HTN, ?med effect 3. Cont ASA/Plavix/Beta alexx 4. For echo today Will follow
[2018-10-14 08:54] LABS: CREATININE 10.3 mg/dL (0.55-1.3)
[2018-10-14] MEDS: metoPROLOL SUCCINATE 25 MG TAB.SR.24H (FP) PO SCH (10:00)
[2018-10-14] MEDS: TAMSULOSIN HCL 0.4 MG CAP PO SCH (10:00)
[2018-10-14] MEDS: HEPARIN NA (PORCINE) 5,000 UNITS/ML 1ML VIAL SQ SCH ×2 (10:00→21:47)
[2018-10-14] MEDS: FOLIC ACID 1 MG TABLET (FP) PO SCH (10:00)
[2018-10-14] MEDS: CLOPIDOGREL BISULFATE 75 MG TABLET (FP) PO SCH (10:00)
[2018-10-14] MEDS: ASPIRIN COATED 81 MG TABLET.EC PO SCH (10:00)
[2018-10-14] MEDS: MULTIVITAMINS THER W-MINERALS COMBO TABLET (FP) PO SCH (10:00)
[2018-10-14] MEDS: SEVELAMER CARBONATE 800 MG TAB (FP) PO SCH ×3 (10:00→17:02)
--- NOTE | 2018-10-14 11:18 | PN ---
Progress Note (short form) - Note Progress Note: Renal follow up for ESRD/AMS Pt seen and examined at the bedside awake and alert has no acute complaints denies any sob, cp, abd pain, N/V/D, fever or chills Vital Signs Temperature 98.1 F 10/14/18 06:00 Pulse Rate 76 10/14/18 06:00 Respiratory Rate 18 10/14/18 06:00 Blood Pressure 158/67 10/14/18 06:00 O2 Sat by Pulse Oximetry (%) 98 10/13/18 21:00 Intake & Output 10/11/18 10/12/18 10/13/18 10/14/18 23:59 23:59 23:59 23:59 Intake Total 360 220 370 Balance 360 220 370 Weight 61.054 kg NAD awake and alert neck supple RRR CTA soft NT/ND no LE edema CBC, BMP 10/14/18 07:30 10/14/18 07:30 Current Medications Acetaminophen (Tylenol -) 650 mg PO Q4H PRN PRN Reason: PAIN SCALE 1-5 Aspirin (Ecotrin -) 81 mg PO DAILY [facility] Last Admin: 10/14/18 10:00 Dose: 81 mg Clopidogrel Bisulfate (Plavix -) 75 mg PO DAILY [facility] Last Admin: 10/14/18 10:00 Dose: 75 mg Folic Acid (Folic Acid -) 1 mg PO DAILY [facility] Last Admin: 10/14/18 10:00 Dose: 1 mg Heparin Sodium (Porcine) (Heparin -) 5,000 unit SQ BID [facility] Last Admin: 10/14/18 10:00 Dose: 5,000 unit Sodium Chloride (Normal Saline -) 250 mls @ 3,000 mls/hr IV PRN PRN PRN Reason: Hypotension during Dialysis Stop: 10/13/18 09:30 Insulin Aspart (Novolog Vial Sliding Scale -) 1 vial SQ ACHS [facility]; Protocol Last Admin: 10/14/18 06:46 Dose: Not Given Metoprolol Succinate (Toprol Xl -) 25 mg PO DAILY [facility] Last Admin: 10/14/18 10:00 Dose: 25 mg Multivitamins/Minerals (Theragran-M) 1 each PO DAILY [facility] Last Admin: 10/14/18 10:00 Dose: 1 each Sevelamer Carbonate (Renvela -) 800 mg PO TIDCM [facility] Last Admin: 10/14/18 10:00 Dose: 800 mg Tamsulosin HCl (Flomax -) 0.4 mg PO DAILY@0830 [facility] Last Admin: 10/14/18 10:00 Dose: 0.4 mg 68 year old Gentleman with hx of ESRD on HD, COPD, Hypertension, CAD who presented with fall and AMS and found to have hypertension urgency/ hypertension, encephalopathy and hyperkalemia. #Altered Mental status of unclear etiology #Hypertensive Emergency #s/p Fall #Hyperkalemia #ESRD on HD #Metabolic acidosis Mental status now normal CT head showed a chronic infarct but no acute pathology, carotid dopplers were WNL no fevers recorded, no leukocytosis and blood cultures w/o growth for 48 hours no acute need for APPRAISAL MANAGER today, next dialysis in AM continue renal diet Neurology follow up Thank you
[2018-10-14] MEDS ORDERED: SODIUM CHLORIDE 250 ML IV PRN (11:19)
[2018-10-14] MEDS: amLODIPine BESYLATE 10 MG TABLET (FP) PO SCH (12:12)
--- NOTE | 2018-10-14 12:56 | ECHO ---
Name: EMANUEL NO Exam:Adult Echocardiogram Study Date: 10/14/2018 10:15 AM Age: 68 yrs Reason For Study: Stroke Height: 61 in Weight: 134 lb BSA: 1.6 m2 MMode/2D Measurements & Calculations IVSd: 0.82 cm Ao root diam: 3.0 cm LVIDd: 5.3 cm LA dimension: 3.4 cm LVIDs: 4.1 cm LVPWd: 0.85 cm EDV(Teich): 132.7 ml LVOT diam: 2.0 cm ESV(Teich): 73.2 ml Doppler Measurements & Calculations MV E max hammad: 67.1 cm/sec Ao V2 max: 135.5 cm/sec MV A max hammad: 96.7 cm/sec Ao max P.3 mmHg MV E/A: 0.69 Ao V2 mean: 80.6 cm/sec MV dec time: 0.17 sec Ao mean P.1 mmHg Ao V2 VTI: 24.1 cm KASSI(I,D): 1.9 cm2 KASSI(V,D): 1.8 cm2 LV V1 max P.5 mmHg SV(LVOT): 45.5 ml LV V1 mean P.3 mmHg LV V1 max: 79.5 cm/sec LV V1 mean: 52.3 cm/sec LV V1 VTI: 14.9 cm TR max hammad: 259.3 cm/sec Med Peak E' Hammad: 6.8 cm/sec TR max P.9 mmHg Med E/e': 9.9 Lat Peak E' Hammad: 9.1 cm/sec Lat E/e': 7.4 Procedure A complete two-dimensional transthoracic echocardiogram was performed (2D, M-mode, Doppler and color flow Doppler). Left Ventricle The left ventricle is normal in size. Left ventricular systolic function is moderately reduced. Eject ion Fraction = 35-40%. Grade I diastolic dysfunction, (abnormal relaxation pattern). Ratio E/E'= 10. Ther e is moderate global hypokinesis of the left ventricle. Right Ventricle The right ventricle is normal size. The right ventricular systolic function is normal. RV systolic TD I is 11 cm/s. Atria The left atrial size is normal. Right atrial size is normal. Mitral Valve There is mild mitral annular calcification. There is trace to mild mitral regurgitation. Tricuspid Valve The tricuspid valve is normal in structure and function. No tricuspid regurgitation. Right ventricula r systolic pressure is normal. Aortic Valve The aortic valve is normal in structure and function. No aortic regurgitation is present. Pulmonic Valve The pulmonic valve is not well visualized. Great Vessels The aortic root is normal size. Pericardium/Pleura There is no pericardial effusion. Interpretation Summary The left ventricle is normal in size. Left ventricular systolic function is moderately reduced. There is moderate global hypokinesis of the left ventricle. Ejection Fraction = 35-40%. Grade I diastolic dysfunction, (abnormal relaxation pattern). Ratio E/E'= 10 The right ventricular systolic function is normal. The left atrial size is normal. Right atrial size is normal. There is mild mitral annular calcification. There is trace to mild mitral regurgitation. There is no pericardial effusion. Previous study is not available for comparison Geraldo Higgins MD 10/14/2018 12:56 PM
--- NOTE | 2018-10-14 13:20 | PN ---
Progress Note (short form) - Note Progress Note: NEUROLOGY PROGRESS: Events reviewed and discussed with staff. Per staff, noted improvement in mentation after HD. Was given Ca++ and insulin to lower K+. Pt reports he had HD Sat, but since his fall c/o R forearm pain. Carotid duplex noted with extensive plaque in both carotids without sig. stenosis. K 6.9 -> 5.3 Ammonia 28.5 RPR non-reactive DRAGAN: Normal shoulder mechanics. R forearm feels tense. No evidence of trauma. L AV fistula patent with bruit. old scars from previous permacath and R non- functioning AV in antecubital fossa. NEURO: Awake, alert. Follows all commands. Fluent, coherent speech. [facility]. October 14, 2018. TRUMP CN: II-XII normal Normal strength. Reflexes brisk and symmetric. Toes downgoing. Sensory: Feels vibration at the ankles. Romberg - Gait: Normal stride. Can walk on heels and toes without difficulty. IMP: 1. Mild B/L cerebral dysfunction (OMS, chronic) 2. Myoclonic jerks suggestive of Toxic-metabolic encephalopathy ( resolved after HD) SUGGEST: Consider venous doppler of RUE to r/o thrombosis Await B12, TSH Continue BP control. Thank you very much, Mike Bernstein mD
[2018-10-14] MEDS: ACETAMINOPHEN 325 MG TABLET (FP) PO PRN (21:47)
--- NOTE | 2018-10-14 22:19 | PN ---
Progress Note, Physician History of Present Illness: No new complaints - Current Medication List Current Medications: Active Medications Acetaminophen (Tylenol -) 650 mg PO Q4H PRN PRN Reason: PAIN SCALE 1-5 Last Admin: 10/14/18 21:47 Dose: 650 mg Amlodipine Besylate (Norvasc -) 10 mg PO DAILY [facility] Last Admin: 10/14/18 12:12 Dose: 10 mg Aspirin (Ecotrin -) 81 mg PO DAILY [facility] Last Admin: 10/14/18 10:00 Dose: 81 mg Clopidogrel Bisulfate (Plavix -) 75 mg PO DAILY [facility] Last Admin: 10/14/18 10:00 Dose: 75 mg Epoetin Marko (Procrit -) 10,000 unit SQ ONCE ONE Stop: 10/15/18 06:01 Folic Acid (Folic Acid -) 1 mg PO DAILY [facility] Last Admin: 10/14/18 10:00 Dose: 1 mg Heparin Sodium (Porcine) (Heparin -) 5,000 unit SQ BID [facility] Last Admin: 10/14/18 21:47 Dose: 5,000 unit Sodium Chloride (Normal Saline -) 250 mls @ 3,000 mls/hr IV PRN PRN PRN Reason: Hypotension during Dialysis Stop: 10/13/18 09:30 Sodium Chloride (Normal Saline -) 250 mls @ 3,000 mls/hr IV PRN PRN PRN Reason: Hypotension during Dialysis Stop: 10/15/18 11:19 Insulin Aspart (Novolog Vial Sliding Scale -) 1 vial SQ [facility]; Protocol Last Admin: 10/14/18 21:47 Dose: Not Given Metoprolol Succinate (Toprol Xl -) 25 mg PO DAILY [facility] Last Admin: 10/14/18 10:00 Dose: 25 mg Multivitamins/Minerals (Theragran-M) 1 each PO DAILY [facility] Last Admin: 10/14/18 10:00 Dose: 1 each Sevelamer Carbonate (Renvela -) 800 mg PO TIDCM [facility] Last Admin: 10/14/18 17:02 Dose: 800 mg Tamsulosin HCl (Flomax -) 0.4 mg PO DAILY@0830 [facility] Last Admin: 10/14/18 10:00 Dose: 0.4 mg - Objective Vital Signs: Vital Signs Temperature 97.5 F L 10/14/18 21:53 Pulse Rate 79 10/14/18 21:53 Respiratory Rate 16 10/14/18 21:53 Blood Pressure 126/69 10/14/18 21:53 O2 Sat by Pulse Oximetry (%) 98 10/14/18 09:00 Cardiovascular: Yes: WNL, Regular Rate and Rhythm Respiratory: Yes: WNL, Regular, CTA Bilaterally Gastrointestinal: Yes: WNL, Normal Bowel Sounds, Soft Extremities: Yes: Other ((+) swelling RUE) Labs: CBC, BMP 10/14/18 07:30 10/14/18 07:30 INR, PTT INR 1.07 (0.82-1.09) 10/12/18 07:40 Problem List - Problems (1) Altered mental status Assessment/Plan: CT scan head did not show any acute pathology Mental status improved Metabolic encephalopathy Code(s): R41.82 - ALTERED MENTAL STATUS, UNSPECIFIED Qualifiers: Altered mental status type: delirium Qualified Code(s): R41.0 - Disorientation, unspecified (2) Elevated troponin Assessment/Plan: Due to renal disease Check echo Cardio consult Code(s): R74.8 - ABNORMAL LEVELS OF OTHER SERUM ENZYMES (3) Anemia in ESRD (end-stage renal disease) Assessment/Plan: H/H stable Code(s): N18.6 - END STAGE RENAL DISEASE; D63.1 - ANEMIA IN CHRONIC KIDNEY DISEASE (4) CAD (coronary artery disease) Assessment/Plan: Cont plavix Code(s): I25.10 - ATHSCL HEART DISEASE OF [place] CORONARY ARTERY W/O ANG PCTRS Qualifiers: Coronary Disease-Associated Artery/Lesion type: [place] artery [place] vs. transplanted heart: [place] heart Associated angina: without angina Qualified Code(s): I25.10 - Atherosclerotic heart disease of [place] coronary artery without angina pectoris (5) COPD (chronic obstructive pulmonary disease) Assessment/Plan: Stable Code(s): J44.9 - CHRONIC OBSTRUCTIVE PULMONARY DISEASE, UNSPECIFIED (6) ESRD on hemodialysis Assessment/Plan: As per renal Pt on hemodialysis Code(s): N18.6 - END STAGE RENAL DISEASE; Z99.2 - DEPENDENCE ON RENAL DIALYSIS (7) Hyperlipidemia Code(s): E78.5 - HYPERLIPIDEMIA, UNSPECIFIED Qualifiers: Hyperlipidemia type: unspecified hyperlipidemia (8) Hypertension Code(s): I10 - ESSENTIAL (PRIMARY) HYPERTENSION Qualifiers: Hypertension type: essential hypertension Qualified Code(s): I10 - Essential (primary) hypertension (9) Type 2 diabetes mellitus Code(s): E11.9 - TYPE 2 DIABETES MELLITUS WITHOUT COMPLICATIONS Qualifiers: Diabetes mellitus complication status: without complication Qualified Code( s): E11.9 - Type 2 diabetes mellitus without complications
[2018-10-15] MEDS: ACETAMINOPHEN 325 MG TABLET (FP) PO PRN ×3 (01:56→21:02)
[2018-10-15] MEDS: INSULIN SLIDING SCALE (NOVOLOG) 1 VIAL SQ SCH ×4 (06:11→21:02)
--- NOTE | 2018-10-15 09:16 | PN ---
Progress Note, Physician Chief Complaint: seen and examined. No distress Denies CP, SOB, palpitations. Denies dizziness. - Current Medication List Current Medications: Active Medications Acetaminophen (Tylenol -) 650 mg PO Q4H PRN PRN Reason: PAIN SCALE 1-5 Last Admin: 10/15/18 01:56 Dose: 650 mg Amlodipine Besylate (Norvasc -) 10 mg PO DAILY [facility] Last Admin: 10/14/18 12:12 Dose: 10 mg Aspirin (Ecotrin -) 81 mg PO DAILY [facility] Last Admin: 10/14/18 10:00 Dose: 81 mg Clopidogrel Bisulfate (Plavix -) 75 mg PO DAILY [facility] Last Admin: 10/14/18 10:00 Dose: 75 mg Epoetin Marko (Procrit -) 10,000 unit SQ ONCE ONE Stop: 10/15/18 06:01 Folic Acid (Folic Acid -) 1 mg PO DAILY [facility] Last Admin: 10/14/18 10:00 Dose: 1 mg Heparin Sodium (Porcine) (Heparin -) 5,000 unit SQ BID [facility] Last Admin: 10/14/18 21:47 Dose: 5,000 unit Sodium Chloride (Normal Saline -) 250 mls @ 3,000 mls/hr IV PRN PRN PRN Reason: Hypotension during Dialysis Stop: 10/13/18 09:30 Sodium Chloride (Normal Saline -) 250 mls @ 3,000 mls/hr IV PRN PRN PRN Reason: Hypotension during Dialysis Stop: 10/15/18 11:19 Insulin Aspart (Novolog Vial Sliding Scale -) 1 vial SQ [facility]; Protocol Last Admin: 10/15/18 06:11 Dose: Not Given Metoprolol Succinate (Toprol Xl -) 25 mg PO DAILY [facility] Last Admin: 10/14/18 10:00 Dose: 25 mg Multivitamins/Minerals (Theragran-M) 1 each PO DAILY [facility] Last Admin: 10/14/18 10:00 Dose: 1 each Sevelamer Carbonate (Renvela -) 800 mg PO TIDCM [facility] Last Admin: 10/14/18 17:02 Dose: 800 mg Tamsulosin HCl (Flomax -) 0.4 mg PO DAILY@0830 [facility] Last Admin: 10/14/18 10:00 Dose: 0.4 mg - Objective Vital Signs: Vital Signs Temperature 97.9 F 10/15/18 06:00 Pulse Rate 70 10/15/18 06:00 Respiratory Rate 20 10/15/18 06:00 Blood Pressure 142/64 10/15/18 06:00 O2 Sat by Pulse Oximetry (%) 98 10/14/18 21:00 Constitutional: Yes: No Distress, Calm Eyes: Yes: Conjunctiva Clear Cardiovascular: Yes: Regular Rate and Rhythm Respiratory: Yes: CTA Bilaterally (clear, no wheezing or rales.) Gastrointestinal: Yes: Soft (non-tender) Edema: No Peripheral Pulses WNL: Yes Neurological: Yes: Alert, Oriented ...Motor Strength: WNL Labs: CBC, BMP 10/14/18 07:30 10/14/18 07:30 INR, PTT INR 1.07 (0.82-1.09) 10/12/18 07:40 Microbiology 10/12/18 07:50 Blood - Peripheral Venous Blood Culture - Preliminary NO GROWTH OBTAINED AFTER 72 HOURS, INCUBATION TO CONTINUE FOR 2 DAYS. 10/12/18 07:50 Blood - Peripheral Venous Blood Culture - Preliminary NO GROWTH OBTAINED AFTER 72 HOURS, INCUBATION TO CONTINUE FOR 2 DAYS. Laboratory Tests 10/12/18 10/14/18 10/14/18 07:40 07:30 17:10 WBC 6.5 Hgb 15.7 Plt Count 109 L Troponin I 0.03 0.04 TSH 10/15/18 06:30 WBC Hgb Plt Count Troponin I TSH 0.94 - ....Imaging EKG: Image Reviewed (TELE: NSR) Problem List - Problems (1) Altered mental status Code(s): R41.82 - ALTERED MENTAL STATUS, UNSPECIFIED Qualifiers: Altered mental status type: delirium Qualified Code(s): R41.0 - Disorientation, unspecified (2) Hyperkalemia Code(s): E87.5 - HYPERKALEMIA (3) CAD (coronary artery disease) Code(s): I25.10 - ATHSCL HEART DISEASE OF [place] CORONARY ARTERY W/O ANG PCTRS Qualifiers: Coronary Disease-Associated Artery/Lesion type: [place] artery [place] vs. transplanted heart: [place] heart Associated angina: without angina Qualified Code(s): I25.10 - Atherosclerotic heart disease of [place] coronary artery without angina pectoris (4) COPD (chronic obstructive pulmonary disease) Code(s): J44.9 - CHRONIC OBSTRUCTIVE PULMONARY DISEASE, UNSPECIFIED (5) ESRD on hemodialysis Code(s): N18.6 - END STAGE RENAL DISEASE; Z99.2 - DEPENDENCE ON RENAL DIALYSIS (6) Type 2 diabetes mellitus Code(s): E11.9 - TYPE 2 DIABETES MELLITUS WITHOUT COMPLICATIONS Qualifiers: Diabetes mellitus complication status: without complication Qualified Code( s): E11.9 - Type 2 diabetes mellitus without complications Assessment/Plan IMP: 1.Altered mental status 2.Hyperkalemia 3.ESRD on HD 4.CAD s/p CABG: S/p cath recently: SVG RCA and LCx chronic occlusion, NAVA patent, no change 5.Chronic stable angina 6. HTN 7. Carotid disease- moderate Head CT negative; Neuro exam nonfocal REC: 1. The equivocal TnI is unlikely due to ACS. It is likely due to chronic CAD and LV systolic/diastolic dysfx in the setting of CKD. 2. Initial change in mental status is likely secondary to toxic/metabolic changes: elevated K+, marked HTN, ?med effect 3. Cont ASA/Plavix/Beta alexx 4. Can d/c tele 5. Optho f/u for left eye. Will follow
[2018-10-15] MEDS: SEVELAMER CARBONATE 800 MG TAB (FP) PO SCH ×3 (09:45→17:38)
[2018-10-15 10:09] LABS: HEMATOCRIT 37.8 % (35.4-49); MCH 35.9 pg (25.7-33.7); MCHC 34.4 g/dl (32.0-35.9); MEAN CELL VOLUME 104.1 fl (80-96); MEAN PLT VOLUME 9.1 fl (7.5-11.1); PLATELET COUNT 107 K/MM3 (134-434); RBC 3.63 M/mm3 (4.00-5.60); RDW 15.3 % (11.9-15.9); WHITE BLOOD COUNT 6.3 K/mm3 (4.0-10.0)
[2018-10-15] MEDS ORDERED: EPOETIN ALFA 10,000 UNIT/1 ML VIAL SQ ONE (10:30)
[2018-10-15 10:50] LABS: ALBUMIN 3.6 g/dl (3.4-5.0); ALK PHOS 81 U/L (45-117); ANION GAP 13 MMOL/L (8-16); BILIRUBIN,TOTAL 0.6 mg/dL (0.2-1); BLOOD UREA NITROGEN 69 mg/dL (7-18); CALCIUM 8.7 mg/dL (8.5-10.1); CHLORIDE 99 mmol/L (98-107); CO2 27 mmol/L (21-32); GLUCOSE,RANDOM 110 mg/dL (74-106); MAGNESIUM 2.5 mg/dL (1.8-2.4); PHOSPHOROUS 4.3 mg/dL (2.5-4.9); POTASSIUM 5.5 mmol/L (3.5-5.1); SGOT/AST 18 U/L (15-37); SGPT/ALT 22 U/L (13-61); SODIUM 138 mmol/L (136-145); TOT PROT 6.3 g/dl (6.4-8.2)
[2018-10-15 10:52] LABS: CREATININE 11.9 mg/dL (0.55-1.3)
[2018-10-15] MEDS: HEPARIN NA (PORCINE) 5,000 UNITS/ML 1ML VIAL SQ SCH ×2 (11:00→21:02)
[2018-10-15] MEDS: ASPIRIN COATED 81 MG TABLET.EC PO SCH (13:43)
[2018-10-15] MEDS: FOLIC ACID 1 MG TABLET (FP) PO SCH (13:43)
[2018-10-15] MEDS: TAMSULOSIN HCL 0.4 MG CAP PO SCH (13:43)
[2018-10-15] MEDS: MULTIVITAMINS THER W-MINERALS COMBO TABLET (FP) PO SCH (13:44)
[2018-10-15] MEDS: CLOPIDOGREL BISULFATE 75 MG TABLET (FP) PO SCH (13:44)
[2018-10-15] MEDS: metoPROLOL SUCCINATE 25 MG TAB.SR.24H (FP) PO SCH (13:44)
[2018-10-15] MEDS: amLODIPine BESYLATE 10 MG TABLET (FP) PO SCH (13:44)
[2018-10-15 22:11] LABS: HBSAG SCREEN Negative (Negative); HEP A AB, IGM Negative (Negative); HEP B CORE AB, TOT Negative (Negative)
--- NOTE | 2018-10-15 23:39 | PN ---
Progress Note, Physician - Current Medication List Current Medications: Active Medications Acetaminophen (Tylenol -) 650 mg PO Q4H PRN PRN Reason: PAIN SCALE 1-5 Last Admin: 10/15/18 21:02 Dose: 650 mg Amlodipine Besylate (Norvasc -) 10 mg PO DAILY [facility] Last Admin: 10/15/18 13:44 Dose: 10 mg Aspirin (Ecotrin -) 81 mg PO DAILY [facility] Last Admin: 10/15/18 13:43 Dose: 81 mg Clopidogrel Bisulfate (Plavix -) 75 mg PO DAILY [facility] Last Admin: 10/15/18 13:44 Dose: 75 mg Folic Acid (Folic Acid -) 1 mg PO DAILY [facility] Last Admin: 10/15/18 13:43 Dose: 1 mg Heparin Sodium (Porcine) (Heparin -) 5,000 unit SQ BID [facility] Last Admin: 10/15/18 21:02 Dose: 5,000 unit Sodium Chloride (Normal Saline -) 250 mls @ 3,000 mls/hr IV PRN PRN PRN Reason: Hypotension during Dialysis Stop: 10/13/18 09:30 Sodium Chloride (Normal Saline -) 250 mls @ 3,000 mls/hr IV PRN PRN PRN Reason: Hypotension during Dialysis Stop: 10/15/18 11:19 Insulin Aspart (Novolog Vial Sliding Scale -) 1 vial SQ [facility]; Protocol Last Admin: 10/15/18 21:02 Dose: Not Given Metoprolol Succinate (Toprol Xl -) 25 mg PO DAILY [facility] Last Admin: 10/15/18 13:44 Dose: 25 mg Multivitamins/Minerals (Theragran-M) 1 each PO DAILY [facility] Last Admin: 10/15/18 13:44 Dose: 1 each Sevelamer Carbonate (Renvela -) 800 mg PO TIDCM [facility] Last Admin: 10/15/18 17:38 Dose: 800 mg Tamsulosin HCl (Flomax -) 0.4 mg PO DAILY@0830 [facility] Last Admin: 10/15/18 13:43 Dose: 0.4 mg - Objective Vital Signs: Vital Signs Temperature 97.9 F 10/15/18 17:39 Pulse Rate 94 H 10/15/18 17:39 Respiratory Rate 18 10/15/18 17:39 Blood Pressure 138/71 10/15/18 17:39 O2 Sat by Pulse Oximetry (%) 98 10/15/18 09:00 Labs: CBC, BMP 10/15/18 06:30 10/15/18 06:30 INR, PTT INR 1.07 (0.82-1.09) 10/12/18 07:40 Problem List - Problems (1) Altered mental status Code(s): R41.82 - ALTERED MENTAL STATUS, UNSPECIFIED Qualifiers: Altered mental status type: delirium Qualified Code(s): R41.0 - Disorientation, unspecified (2) Elevated troponin Code(s): R74.8 - ABNORMAL LEVELS OF OTHER SERUM ENZYMES (3) Anemia in ESRD (end-stage renal disease) Code(s): N18.6 - END STAGE RENAL DISEASE; D63.1 - ANEMIA IN CHRONIC KIDNEY DISEASE (4) CAD (coronary artery disease) Code(s): I25.10 - ATHSCL HEART DISEASE OF [place] CORONARY ARTERY W/O ANG PCTRS Qualifiers: Coronary Disease-Associated Artery/Lesion type: [place] artery [place] vs. transplanted heart: [place] heart Associated angina: without angina Qualified Code(s): I25.10 - Atherosclerotic heart disease of [place] coronary artery without angina pectoris (5) COPD (chronic obstructive pulmonary disease) Code(s): J44.9 - CHRONIC OBSTRUCTIVE PULMONARY DISEASE, UNSPECIFIED (6) ESRD on hemodialysis Code(s): N18.6 - END STAGE RENAL DISEASE; Z99.2 - DEPENDENCE ON RENAL DIALYSIS (7) Hyperlipidemia Code(s): E78.5 - HYPERLIPIDEMIA, UNSPECIFIED Qualifiers: Hyperlipidemia type: unspecified hyperlipidemia (8) Hypertension Code(s): I10 - ESSENTIAL (PRIMARY) HYPERTENSION Qualifiers: Hypertension type: essential hypertension Qualified Code(s): I10 - Essential (primary) hypertension (9) Type 2 diabetes mellitus Code(s): E11.9 - TYPE 2 DIABETES MELLITUS WITHOUT COMPLICATIONS Qualifiers: Diabetes mellitus complication status: without complication Qualified Code( s): E11.9 - Type 2 diabetes mellitus without complications
[2018-10-16] MEDS: ACETAMINOPHEN 325 MG TABLET (FP) PO PRN ×2 (05:37→11:50)
[2018-10-16] MEDS: INSULIN SLIDING SCALE (NOVOLOG) 1 VIAL SQ SCH ×2 (06:35→11:49)
[2018-10-16] MEDS: SEVELAMER CARBONATE 800 MG TAB (FP) PO SCH ×2 (08:43→11:49)
[2018-10-16] MEDS: TAMSULOSIN HCL 0.4 MG CAP PO SCH (08:43)
--- NOTE | 2018-10-16 08:46 | PN ---
Progress Note, Physician Chief Complaint: seen and examined No distress - Current Medication List Current Medications: Active Medications Acetaminophen (Tylenol -) 650 mg PO Q4H PRN PRN Reason: PAIN SCALE 1-5 Last Admin: 10/16/18 05:37 Dose: 650 mg Amlodipine Besylate (Norvasc -) 10 mg PO DAILY [facility] Last Admin: 10/15/18 13:44 Dose: 10 mg Aspirin (Ecotrin -) 81 mg PO DAILY [facility] Last Admin: 10/15/18 13:43 Dose: 81 mg Clopidogrel Bisulfate (Plavix -) 75 mg PO DAILY [facility] Last Admin: 10/15/18 13:44 Dose: 75 mg Folic Acid (Folic Acid -) 1 mg PO DAILY [facility] Last Admin: 10/15/18 13:43 Dose: 1 mg Heparin Sodium (Porcine) (Heparin -) 5,000 unit SQ BID [facility] Last Admin: 10/15/18 21:02 Dose: 5,000 unit Sodium Chloride (Normal Saline -) 250 mls @ 3,000 mls/hr IV PRN PRN PRN Reason: Hypotension during Dialysis Stop: 10/13/18 09:30 Sodium Chloride (Normal Saline -) 250 mls @ 3,000 mls/hr IV PRN PRN PRN Reason: Hypotension during Dialysis Stop: 10/15/18 11:19 Insulin Aspart (Novolog Vial Sliding Scale -) 1 vial SQ [facility]; Protocol Last Admin: 10/16/18 06:35 Dose: Not Given Metoprolol Succinate (Toprol Xl -) 25 mg PO DAILY [facility] Last Admin: 10/15/18 13:44 Dose: 25 mg Multivitamins/Minerals (Theragran-M) 1 each PO DAILY [facility] Last Admin: 10/15/18 13:44 Dose: 1 each Sevelamer Carbonate (Renvela -) 800 mg PO TIDCM [facility] Last Admin: 10/16/18 08:43 Dose: 800 mg Tamsulosin HCl (Flomax -) 0.4 mg PO DAILY@0830 [facility] Last Admin: 10/16/18 08:43 Dose: 0.4 mg - Objective Vital Signs: Vital Signs Temperature 97.9 F 10/16/18 05:15 Pulse Rate 87 10/16/18 05:15 Respiratory Rate 18 10/16/18 05:15 Blood Pressure 127/57 L 10/16/18 05:15 O2 Sat by Pulse Oximetry (%) 95 10/15/18 21:00 Constitutional: Yes: No Distress Cardiovascular: Yes: Regular Rate and Rhythm Respiratory: Yes: CTA Bilaterally Gastrointestinal: Yes: Soft Edema: No Neurological: Yes: Alert, Oriented ...Motor Strength: WNL Labs: CBC, BMP 10/15/18 06:30 10/15/18 06:30 INR, PTT INR 1.07 (0.82-1.09) 10/12/18 07:40 Microbiology 10/12/18 07:50 Blood - Peripheral Venous Blood Culture - Preliminary NO GROWTH OBTAINED AFTER 96 HOURS, INCUBATION TO CONTINUE FOR 1 DAYS. 10/12/18 07:50 Blood - Peripheral Venous Blood Culture - Preliminary NO GROWTH OBTAINED AFTER 96 HOURS, INCUBATION TO CONTINUE FOR 1 DAYS. Problem List - Problems (1) Altered mental status Code(s): R41.82 - ALTERED MENTAL STATUS, UNSPECIFIED Qualifiers: Altered mental status type: delirium Qualified Code(s): R41.0 - Disorientation, unspecified (2) Hyperkalemia Code(s): E87.5 - HYPERKALEMIA (3) CAD (coronary artery disease) Code(s): I25.10 - ATHSCL HEART DISEASE OF [place] CORONARY ARTERY W/O ANG PCTRS Qualifiers: Coronary Disease-Associated Artery/Lesion type: [place] artery [place] vs. transplanted heart: [place] heart Associated angina: without angina Qualified Code(s): I25.10 - Atherosclerotic heart disease of [place] coronary artery without angina pectoris (4) COPD (chronic obstructive pulmonary disease) Code(s): J44.9 - CHRONIC OBSTRUCTIVE PULMONARY DISEASE, UNSPECIFIED (5) ESRD on hemodialysis Code(s): N18.6 - END STAGE RENAL DISEASE; Z99.2 - DEPENDENCE ON RENAL DIALYSIS (6) Type 2 diabetes mellitus Code(s): E11.9 - TYPE 2 DIABETES MELLITUS WITHOUT COMPLICATIONS Qualifiers: Diabetes mellitus complication status: without complication Qualified Code( s): E11.9 - Type 2 diabetes mellitus without complications Assessment/Plan IMP: 1.Altered mental status 2.Hyperkalemia 3.ESRD on HD 4.CAD s/p CABG: S/p cath recently: SVG RCA and LCx chronic occlusion, NAVA patent, no change 5.Chronic stable angina 6. HTN 7. Carotid disease- moderate Head CT negative; Neuro exam nonfocal REC: 1. The equivocal TnI is unlikely due to ACS. It is likely due to chronic CAD and LV systolic/diastolic dysfx in the setting of CKD. 2. Initial change in mental status is likely secondary to toxic/metabolic changes: elevated K+, marked HTN, ?med effect 3. Cont ASA/Plavix/Beta alexx Will sign off today. Please call again as/if needed.
[2018-10-16] MEDS: metoPROLOL SUCCINATE 25 MG TAB.SR.24H (FP) PO SCH (11:00)
[2018-10-16] MEDS: ASPIRIN COATED 81 MG TABLET.EC PO SCH (11:00)
[2018-10-16] MEDS: FOLIC ACID 1 MG TABLET (FP) PO SCH (11:00)
[2018-10-16] MEDS: HEPARIN NA (PORCINE) 5,000 UNITS/ML 1ML VIAL SQ SCH (11:00)
[2018-10-16] MEDS: CLOPIDOGREL BISULFATE 75 MG TABLET (FP) PO SCH (11:01)
[2018-10-16] MEDS: amLODIPine BESYLATE 10 MG TABLET (FP) PO SCH (11:01)
[2018-10-16] MEDS: MULTIVITAMINS THER W-MINERALS COMBO TABLET (FP) PO SCH (11:01)
[2018-10-16 13:21] LABS: ALBUMIN 3.8 g/dl (3.4-5.0); ALK PHOS 78 U/L (45-117); ANION GAP 10 MMOL/L (8-16); BILIRUBIN,TOTAL 0.5 mg/dL (0.2-1); BLOOD UREA NITROGEN 45 mg/dL (7-18); CALCIUM 8.7 mg/dL (8.5-10.1); CHLORIDE 97 mmol/L (98-107); CO2 28 mmol/L (21-32); GLUCOSE,RANDOM 170 mg/dL (74-106); POTASSIUM 4.9 mmol/L (3.5-5.1); SGOT/AST 20 U/L (15-37); SGPT/ALT 26 U/L (13-61); SODIUM 135 mmol/L (136-145); TOT PROT 6.9 g/dl (6.4-8.2)
[2018-10-16 13:22] LABS: CREATININE 8.7 mg/dL (0.55-1.3)
[2018-10-16 15:28] VITALS: BP 112/48; PULSE 79; TEMP 97.7
== END 2018-10-16 16:00 | disposition home health service (06) | DRG 682 ==
LOC: JER 06:46 → JERBED 09:45 → J4S 11:46
PROVIDERS: ADMIT Internal Medicine; ATTEND Internal Medicine
PROC: 5A1D70Z Performance of Urinary Filtration, Intermittent, Less than 6 Hours Per Day (ICD-10-PCS; principal; 2018-10-15)
DX: I12.0 Hypertensive chronic kidney disease with stage 5 chronic kidney disease or end stage renal disease (principal); N18.6 End stage renal disease; G93.41 Metabolic encephalopathy; I16.1 Hypertensive emergency; E87.2 Acidosis; R41.82 Altered mental status, unspecified; E87.5 Hyperkalemia; I25.10 Atherosclerotic heart disease of native coronary artery without angina pectoris; Z95.1 Presence of aortocoronary bypass graft; Z98.61 Coronary angioplasty status; J44.9 Chronic obstructive pulmonary disease, unspecified; E11.22 Type 2 diabetes mellitus with diabetic chronic kidney disease; Z99.2 Dependence on renal dialysis; D63.1 Anemia in chronic kidney disease; R74.8 Abnormal levels of other serum enzymes; E78.5 Hyperlipidemia, unspecified
CPT/HCPCS: 36415; 70450-TC; 71045-TC-FY; 80053; 82140; 82550; 82553; 82607; 82803; 82962; 83036; 83605; 83735; 84100; 84443; 84484; 84550; 85025; 85027; 85610; 85730; 86704; 86706; 86708; 86803; 87040; 87340; 93005; 93010; 93306-TC; 93880-TC; 93971; 97116-GP; 97161-GP; 99285-25; J0885; J1644

== ENCOUNTER 2020-07-12 07:10 | Inpatient (IN) | payer OTHER ==
[2020-07-12] MEDS ORDERED: SODIUM CHLORIDE 1,878 ML IV ONE (07:52)
[2020-07-12] MEDS ORDERED: SODIUM CHLORIDE 500 ML IV STA (07:55)
[2020-07-12 09:28] LABS: BASO % 0.4 % (0-2.0); EOS % 1.3 % (0-4.5); HEMATOCRIT 39.3 % (35.4-49); HEMOGLOBIN 12.8 GM/dL (11.7-16.9); LYMPH % 3.9 % (8-40); MCH 33.2 pg (25.7-33.7); MCHC 32.7 g/dl (32.0-35.9); MEAN CELL VOLUME 101.8 fl (80-96); MEAN PLT VOLUME 9.2 fl (7.5-11.1); MONO % 5.5 % (3.8-10.2); NEUT % 88.9 % (42.8-82.8); PLATELET COUNT 120 K/MM3 (134-434); RBC 3.86 M/mm3 (4.00-5.60); RDW 15.4 % (11.9-15.9); WHITE BLOOD COUNT 10.6 K/mm3 (4.0-10.0)
[2020-07-12 09:51] LABS: PROTHROMBIN TIME (PATIENT) 12.3 SEC (9.7-13.0)
[2020-07-12 09:52] LABS: POTASSIUM 5.4 mmol/L (3.5-5.1)
[2020-07-12 09:54] LABS: ACTIVATED PTT 28.4 SECONDS (25.2-36.5)
[2020-07-12 09:55] LABS: CALCIUM 9.1 mg/dL (8.5-10.1)
[2020-07-12 09:56] LABS: BLOOD UREA NITROGEN 50.3 mg/dL (7-18)
[2020-07-12 09:59] LABS: BILIRUBIN,TOTAL 0.5 mg/dL (0.2-1)
[2020-07-12 10:00] LABS: TOT PROT 7.2 g/dl (6.4-8.2)
[2020-07-12] MEDS ORDERED: SODIUM CHLORIDE 250 ML IV PRN (12:30)
[2020-07-12] MEDS ORDERED: ALBUTEROL SO4 HFA INHALER IH PRN (21:20)
[2020-07-12] MEDS ORDERED: CEFTRIAXONE 1 GM/50 ML BAG ONE (21:48)
[2020-07-12] MEDS ORDERED: ASPIRIN 81 MG CHEWABLE TABLETS ONE (21:48)
[2020-07-12] MEDS: ASPIRIN COATED 81 MG TABLET.EC PO SCH (21:51)
[2020-07-12] MEDS: CEFTRIAXONE 1 GM in DEXTROSE 5%-WATER - 50 ML IVPB SCH (21:51)
[2020-07-12] MEDS ORDERED: ATORVASTATIN CA 20 MG TABLET (FP) ONE (22:11)
[2020-07-12] MEDS ORDERED: HEPARIN NA (PORCINE) 5,000 UNITS/ML 1ML VIAL ONE (22:12)
[2020-07-12] MEDS: HEPARIN NA (PORCINE) 5,000 UNITS/ML 1ML VIAL SQ SCH (22:17)
[2020-07-12] MEDS: ATORVASTATIN CA 20 MG TABLET (FP) PO SCH (22:17)
[2020-07-13 07:49] LABS: BASO % 0.3 % (0-2.0); EOS % 3.3 % (0-4.5); HEMATOCRIT 41.9 % (35.4-49); HEMOGLOBIN 13.6 GM/dL (11.7-16.9); LYMPH % 10.3 % (8-40); MCH 33.1 pg (25.7-33.7); MCHC 32.5 g/dl (32.0-35.9); MEAN CELL VOLUME 101.9 fl (80-96); MONO % 6.6 % (3.8-10.2); NEUT % 79.5 % (42.8-82.8); PLATELET COUNT 136 K/MM3 (134-434); RBC 4.12 M/mm3 (4.00-5.60); RDW 15.4 % (11.9-15.9); WHITE BLOOD COUNT 9.2 K/mm3 (4.0-10.0)
[2020-07-13 08:12] LABS: BLOOD UREA NITROGEN 27.6 mg/dL (7-18); CALCIUM 9.5 mg/dL (8.5-10.1)
[2020-07-13 08:15] LABS: CREATININE 6.9 mg/dL (0.55-1.3)
[2020-07-13 08:17] LABS: BILIRUBIN,TOTAL 0.5 mg/dL (0.2-1); TOT PROT 7.3 g/dl (6.4-8.2)
[2020-07-13] MEDS: SEVELAMER CARBONATE 800 MG TAB (FP) PO SCH ×3 (08:30→17:35)
[2020-07-13] MEDS ORDERED: metoPROLOL SUCCINATE 25 MG TAB.SR.24H (FP) ONE (09:33)
[2020-07-13] MEDS ORDERED: ASPIRIN COATED 81 MG TABLET.EC ONE (09:33)
[2020-07-13] MEDS ORDERED: FOLIC ACID 1 MG TABLET (FP) ONE (09:34)
[2020-07-13] MEDS ORDERED: HEPARIN NA (PORCINE) 5,000 UNITS/ML 1ML VIAL ONE (09:34)
[2020-07-13] MEDS ORDERED: TAMSULOSIN HCL 0.4 MG CAP ONE (09:34)
[2020-07-13] MEDS ORDERED: CLOPIDOGREL BISULFATE 75 MG TABLET (FP) ONE (09:34)
[2020-07-13] MEDS ORDERED: CEFTRIAXONE 1 GM/50 ML BAG ONE (09:34)
[2020-07-13] MEDS: metoPROLOL SUCCINATE 25 MG TAB.SR.24H (FP) PO SCH (10:00)
[2020-07-13] MEDS ORDERED: ASPIRIN COATED 81 MG TABLET.EC PO SCH (10:00)
[2020-07-13] MEDS: amLODIPine BESYLATE 10 MG TABLET (FP) PO SCH (10:08)
[2020-07-13] MEDS: HEPARIN NA (PORCINE) 5,000 UNITS/ML 1ML VIAL SQ SCH ×2 (10:08→22:28)
[2020-07-13] MEDS: ASPIRIN COATED 81 MG TABLET.EC PO SCH (10:08)
[2020-07-13] MEDS: TAMSULOSIN HCL 0.4 MG CAP PO SCH (10:08)
[2020-07-13] MEDS: FOLIC ACID 1 MG TABLET (FP) PO SCH (10:08)
[2020-07-13] MEDS: CLOPIDOGREL BISULFATE 75 MG TABLET (FP) PO SCH (10:09)
[2020-07-13] MEDS: CEFTRIAXONE 1 GM in DEXTROSE 5%-WATER - 50 ML IVPB SCH (10:09)
[2020-07-13] MEDS ORDERED: SODIUM CHLORIDE 250 ML IV PRN (13:35)
[2020-07-13 14:55] VITALS: BMI 24.5
[2020-07-13] MEDS ORDERED: ALBUTEROL SO4 2.5/IPRATROPIUM 0.5 INH SOL 3 ML VIAL.NEB. NEB PRN (16:37)
[2020-07-13] MEDS ORDERED: PIPERACILLIN/TAZOBACTAM 2.25 GM VIAL IVPB ONE (16:47)
[2020-07-13] MEDS ORDERED: DEXTROSE 5%-WATER - 50 ML IVPB ONE (16:48)
[2020-07-13] MEDS: PIPERACILLIN/TAZOB 2.25 GM 2.25 GM in DEXTROSE 5%-WATER - 50 ML IVPB SCH (17:35)
[2020-07-13] MEDS: ATORVASTATIN CA 20 MG TABLET (FP) PO SCH (22:28)
[2020-07-13] MEDS ORDERED: MAG HYDROX/AL HYDROX/SIMETH 30 ML UNIT-DOSE CUP PO PRN (22:58)
[2020-07-14] MEDS: PIPERACILLIN/TAZOB 2.25 GM 2.25 GM in DEXTROSE 5%-WATER - 50 ML IVPB SCH ×2 (03:00→10:42)
[2020-07-14] MEDS ORDERED: PIPERACILLIN/TAZOBACTAM 2.25 GM VIAL IVPB ONE ×2 (05:31→08:39)
[2020-07-14] MEDS ORDERED: DEXTROSE 5%-WATER - 50 ML IVPB ONE ×2 (05:31→08:39)
[2020-07-14] MEDS: SEVELAMER CARBONATE 800 MG TAB (FP) PO SCH ×2 (08:18→13:57)
[2020-07-14 08:56] LABS: HEMATOCRIT 34.1 % (35.4-49); HEMOGLOBIN 11.4 GM/dL (11.7-16.9); MCH 33.3 pg (25.7-33.7); MCHC 33.3 g/dl (32.0-35.9); MEAN CELL VOLUME 99.9 fl (80-96); MEAN PLT VOLUME 9.4 fl (7.5-11.1); PLATELET COUNT 120 K/MM3 (134-434); RBC 3.41 M/mm3 (4.00-5.60); RDW 14.6 % (11.9-15.9); WHITE BLOOD COUNT 6.8 K/mm3 (4.0-10.0)
[2020-07-14 09:15] LABS: POTASSIUM 4.8 mmol/L (3.5-5.1)
[2020-07-14 09:18] LABS: BLOOD UREA NITROGEN 43.5 mg/dL (7-18); CALCIUM 8.6 mg/dL (8.5-10.1)
[2020-07-14] MEDS: FOLIC ACID 1 MG TABLET (FP) PO SCH (10:42)
[2020-07-14] MEDS: CLOPIDOGREL BISULFATE 75 MG TABLET (FP) PO SCH (10:42)
[2020-07-14] MEDS: TAMSULOSIN HCL 0.4 MG CAP PO SCH (10:42)
[2020-07-14] MEDS: amLODIPine BESYLATE 10 MG TABLET (FP) PO SCH (10:42)
[2020-07-14] MEDS: metoPROLOL SUCCINATE 25 MG TAB.SR.24H (FP) PO SCH (10:42)
[2020-07-14] MEDS: ASPIRIN COATED 81 MG TABLET.EC PO SCH (10:42)
[2020-07-14] MEDS: HEPARIN NA (PORCINE) 5,000 UNITS/ML 1ML VIAL SQ SCH (10:46)
[2020-07-14 14:11] VITALS: BP 153/67; PULSE 82; TEMP 98.7
== END 2020-07-14 15:46 | disposition home or self-care (01) | DRG 864 ==
LOC: JER 07:10 → JERBED 11:09 → J4W 07-13 13:30
PROVIDERS: ADMIT Internal Medicine; ATTEND Internal Medicine
DX: R50.9 Fever, unspecified (principal); N18.6 End stage renal disease; I13.2 Hypertensive heart and chronic kidney disease with heart failure and with stage 5 chronic kidney disease, or end stage renal disease; I50.42 Chronic combined systolic (congestive) and diastolic (congestive) heart failure; E87.2 Acidosis; E11.22 Type 2 diabetes mellitus with diabetic chronic kidney disease; R07.89 Other chest pain; J44.9 Chronic obstructive pulmonary disease, unspecified; I25.10 Atherosclerotic heart disease of native coronary artery without angina pectoris; Z99.2 Dependence on renal dialysis; Z87.891 Personal history of nicotine dependence
CPT/HCPCS: 36415; 71045-TC-FY; 71275-TC; 76700-TC; 80048; 80053; 82550; 82728; 82962; 83605; 83615; 84484; 85025; 85027; 85379; 85610; 85730; 86140; 86803; 87040; 87081; 87340; 93005; 93010; 99285-25; C9803; J1644; Q9967; U0003

== ENCOUNTER 2021-01-06 05:29 | Inpatient (IN) | payer OTHER ==
[2021-01-06 06:35] LABS: BASO % 0.5 % (0-2.0); EOS % 2.9 % (0-4.5); HEMATOCRIT 35.8 % (35.4-49); HEMOGLOBIN 11.9 GM/dL (11.7-16.9); LYMPH % 10.6 % (8-40); MCH 32.8 pg (25.7-33.7); MCHC 33.2 g/dl (32.0-35.9); MEAN CELL VOLUME 98.9 fl (80-96); MEAN PLT VOLUME 8.4 fl (7.5-11.1); PLATELET COUNT 135 10^3/uL (134-434); RBC 3.62 M/mm3 (4.00-5.60); RDW 16.4 % (11.9-15.9); WHITE BLOOD COUNT 7.8 K/mm3 (4.0-10.0)
[2021-01-06 06:44] LABS: INR 1.09 (0.83-1.09); PROTHROMBIN TIME (PATIENT) 13.1 SEC (9.7-13.0)
[2021-01-06 06:46] LABS: ACTIVATED PTT 31.8 SECONDS (25.2-36.5)
[2021-01-06 06:55] LABS: CHLORIDE 106 mmol/L (98-107); SODIUM 138 mmol/L (136-145)
[2021-01-06 06:57] LABS: CALCIUM 8.8 mg/dL (8.5-10.1)
[2021-01-06 06:58] LABS: ALBUMIN 4.1 g/dl (3.4-5.0); ANION GAP 13 MMOL/L (8-16); CO2 19 mmol/L (21-32); GLUCOSE,RANDOM 137 mg/dL (74-106); MAGNESIUM 2.4 mg/dL (1.8-2.4)
[2021-01-06 07:01] LABS: SGOT/AST 26 U/L (15-37); SGPT/ALT 36 U/L (13-61)
[2021-01-06 07:02] LABS: TOT PROT 7.3 g/dl (6.4-8.2)
[2021-01-06 07:04] LABS: ALK PHOS 112 U/L (45-117)
[2021-01-06 07:06] LABS: N-TERMINAL BNP 9789.9 pg/ml (5-125)
[2021-01-06 07:07] LABS: CREATININE 9.8 mg/dL (0.55-1.3)
[2021-01-06] MEDS ORDERED: TAMSULOSIN HCL 0.4 MG CAP PO SCH (18:00)
[2021-01-06] MEDS ORDERED: SODIUM CHLORIDE 250 ML IV PRN (19:04)
[2021-01-06] MEDS: HEPARIN NA (PORCINE) 5,000 UNITS/ML 1ML VIAL SQ SCH (22:07)
[2021-01-06] MEDS: INSULIN SLIDING SCALE (NOVOLOG) 1 VIAL SQ SCH (22:40)
[2021-01-07] MEDS: INSULIN SLIDING SCALE (NOVOLOG) 1 VIAL SQ SCH ×4 (06:24→21:18)
[2021-01-07 08:18] LABS: BASO % 0.5 % (0-2.0); EOS % 3.5 % (0-4.5); HEMOGLOBIN 11.7 GM/dL (11.7-16.9); LYMPH % 11.9 % (8-40); MCH 32.9 pg (25.7-33.7); MCHC 33.5 g/dl (32.0-35.9); MEAN CELL VOLUME 98.3 fl (80-96); MEAN PLT VOLUME 8.3 fl (7.5-11.1); MONO % 9.9 % (3.8-10.2); NEUT % 74.2 % (42.8-82.8); PLATELET COUNT 133 10^3/uL (134-434); RBC 3.56 M/mm3 (4.00-5.60); RDW 16.6 % (11.9-15.9); WHITE BLOOD COUNT 5.8 K/mm3 (4.0-10.0)
[2021-01-07] MEDS: SEVELAMER CARBONATE 800 MG TAB (FP) PO SCH ×3 (08:34→17:35)
[2021-01-07] MEDS: TAMSULOSIN HCL 0.4 MG CAP PO SCH (08:34)
[2021-01-07 08:36] LABS: ALBUMIN 3.6 g/dl (3.4-5.0); CALCIUM 8.7 mg/dL (8.5-10.1)
[2021-01-07 08:41] LABS: CREATININE 6.7 mg/dL (0.55-1.3)
[2021-01-07 08:42] LABS: BILIRUBIN,TOTAL 0.7 mg/dL (0.2-1); TOT PROT 6.5 g/dl (6.4-8.2)
[2021-01-07 08:44] LABS: BLOOD UREA NITROGEN 29.4 mg/dL (7-18)
[2021-01-07] MEDS: CLOPIDOGREL BISULFATE 75 MG TABLET (FP) PO SCH (09:23)
[2021-01-07] MEDS: HEPARIN NA (PORCINE) 5,000 UNITS/ML 1ML VIAL SQ SCH ×2 (09:23→21:18)
[2021-01-07] MEDS: amLODIPine BESYLATE 10 MG TABLET (FP) PO SCH (09:23)
[2021-01-07] MEDS: ASPIRIN COATED 81 MG TABLET.EC PO SCH (09:23)
[2021-01-07] MEDS: metoPROLOL SUCCINATE 25 MG TAB.SR.24H (FP) PO SCH (09:24)
[2021-01-07] MEDS ORDERED: SODIUM CHLORIDE 250 ML IV PRN (11:15)
[2021-01-07 12:04] VITALS: BMI 24.2
[2021-01-07] MEDS ORDERED: HEPARIN NA (PORCINE) 5,000 UNITS/ML 1ML VIAL IVPUSH PRN ×2 (23:33)
[2021-01-08] MEDS: HEPARIN SOD,PORK IN 0.45% NACL 25,000 UNIT/500 ML INFUS.BAG IVPB SCH (00:20)
[2021-01-08] MEDS: ATORVASTATIN CA 80 MG TABLET (FP) PO SCH ×2 (00:20→21:25)
[2021-01-08] MEDS: INSULIN SLIDING SCALE (NOVOLOG) 1 VIAL SQ SCH ×4 (06:17→21:25)
[2021-01-08] MEDS ORDERED: SODIUM CHLORIDE 250 ML IV PRN (10:00)
[2021-01-08 10:37] LABS: HEMATOCRIT 36.2 % (35.4-49); HEMOGLOBIN 12.1 GM/dL (11.7-16.9); MCHC 33.5 g/dl (32.0-35.9); MEAN CELL VOLUME 98.7 fl (80-96); MEAN PLT VOLUME 8.5 fl (7.5-11.1); PLATELET COUNT 134 10^3/uL (134-434); RBC 3.67 M/mm3 (4.00-5.60); RDW 16.7 % (11.9-15.9); WHITE BLOOD COUNT 5.9 K/mm3 (4.0-10.0)
[2021-01-08 11:14] LABS: CALCIUM 9.5 mg/dL (8.5-10.1)
[2021-01-08 11:15] LABS: BLOOD UREA NITROGEN 27.3 mg/dL (7-18)
[2021-01-08 11:18] LABS: CREATININE 5.6 mg/dL (0.55-1.3)
[2021-01-08] MEDS: TAMSULOSIN HCL 0.4 MG CAP PO SCH (11:37)
[2021-01-08] MEDS: CLOPIDOGREL BISULFATE 75 MG TABLET (FP) PO SCH (11:37)
[2021-01-08] MEDS: metoPROLOL SUCCINATE 25 MG TAB.SR.24H (FP) PO SCH (11:37)
[2021-01-08] MEDS: SEVELAMER CARBONATE 800 MG TAB (FP) PO SCH ×3 (11:37→16:44)
[2021-01-08] MEDS: amLODIPine BESYLATE 10 MG TABLET (FP) PO SCH (11:37)
[2021-01-08] MEDS: ASPIRIN COATED 81 MG TABLET.EC PO SCH (11:38)
[2021-01-08 14:11] LABS: HEP B CORE AB, TOT Negative (Negative)
[2021-01-09] MEDS: INSULIN SLIDING SCALE (NOVOLOG) 1 VIAL SQ SCH ×4 (06:07→22:08)
[2021-01-09] MEDS: HEPARIN SOD,PORK IN 0.45% NACL 25,000 UNIT/500 ML INFUS.BAG IVPB SCH (06:09)
[2021-01-09 08:50] LABS: BASO % 0.4 % (0-2.0); HEMATOCRIT 36.9 % (35.4-49); HEMOGLOBIN 12.5 GM/dL (11.7-16.9); LYMPH % 17.8 % (8-40); MCH 33.3 pg (25.7-33.7); MCHC 33.8 g/dl (32.0-35.9); MEAN CELL VOLUME 98.4 fl (80-96); MEAN PLT VOLUME 8.2 fl (7.5-11.1); MONO % 9.8 % (3.8-10.2); PLATELET COUNT 131 10^3/uL (134-434); RBC 3.75 M/mm3 (4.00-5.60); RDW 16.4 % (11.9-15.9); WHITE BLOOD COUNT 5.5 K/mm3 (4.0-10.0)
[2021-01-09] MEDS: metoPROLOL SUCCINATE 25 MG TAB.SR.24H (FP) PO SCH (09:53)
[2021-01-09] MEDS: ASPIRIN COATED 81 MG TABLET.EC PO SCH (09:53)
[2021-01-09] MEDS: TAMSULOSIN HCL 0.4 MG CAP PO SCH (09:53)
[2021-01-09] MEDS: SEVELAMER CARBONATE 800 MG TAB (FP) PO SCH ×3 (09:53→16:39)
[2021-01-09] MEDS: amLODIPine BESYLATE 10 MG TABLET (FP) PO SCH (09:53)
[2021-01-09] MEDS: CLOPIDOGREL BISULFATE 75 MG TABLET (FP) PO SCH (09:53)
[2021-01-09] MEDS: AMOX TR/POT CLAV 875MG/125MG TABLETS (FP) PO SCH (22:08)
[2021-01-09] MEDS: ATORVASTATIN CA 80 MG TABLET (FP) PO SCH (22:08)
[2021-01-10] MEDS: INSULIN SLIDING SCALE (NOVOLOG) 1 VIAL SQ SCH ×4 (06:22→21:15)
[2021-01-10] MEDS: TAMSULOSIN HCL 0.4 MG CAP PO SCH (08:28)
[2021-01-10] MEDS: SEVELAMER CARBONATE 800 MG TAB (FP) PO SCH ×3 (08:28→17:37)
[2021-01-10] MEDS: AMOX TR/POT CLAV 875MG/125MG TABLETS (FP) PO SCH (08:28)
[2021-01-10] MEDS: CLOPIDOGREL BISULFATE 75 MG TABLET (FP) PO SCH (10:14)
[2021-01-10] MEDS: amLODIPine BESYLATE 10 MG TABLET (FP) PO SCH (10:14)
[2021-01-10] MEDS: ASPIRIN COATED 81 MG TABLET.EC PO SCH (10:14)
[2021-01-10] MEDS: metoPROLOL SUCCINATE 25 MG TAB.SR.24H (FP) PO SCH (10:14)
[2021-01-10 10:58] LABS: BASO % 0.4 % (0-2.0); HEMATOCRIT 36.8 % (35.4-49); HEMOGLOBIN 12.1 GM/dL (11.7-16.9); LYMPH % 15.9 % (8-40); MCH 32.7 pg (25.7-33.7); MCHC 32.9 g/dl (32.0-35.9); MEAN CELL VOLUME 99.5 fl (80-96); MEAN PLT VOLUME 8.2 fl (7.5-11.1); MONO % 12.2 % (3.8-10.2); NEUT % 68.5 % (42.8-82.8); PLATELET COUNT 135 10^3/uL (134-434); RDW 15.8 % (11.9-15.9); WHITE BLOOD COUNT 4.5 K/mm3 (4.0-10.0)
[2021-01-10 11:18] LABS: CHLORIDE 98 mmol/L (98-107); SODIUM 138 mmol/L (136-145)
[2021-01-10 11:21] LABS: ANION GAP 12 MMOL/L (8-16); CALCIUM 9.2 mg/dL (8.5-10.1); CO2 28 mmol/L (21-32)
[2021-01-10 11:22] LABS: ALBUMIN 3.5 g/dl (3.4-5.0)
[2021-01-10 11:23] LABS: BLOOD UREA NITROGEN 48.8 mg/dL (7-18); GLUCOSE,RANDOM 245 mg/dL (74-106)
[2021-01-10 11:27] LABS: ALK PHOS 108 U/L (45-117); BILIRUBIN,TOTAL 0.6 mg/dL (0.2-1); SGOT/AST 28 U/L (15-37); SGPT/ALT 43 U/L (13-61); TOT PROT 6.7 g/dl (6.4-8.2)
[2021-01-10 11:38] LABS: CREATININE 8.5 mg/dL (0.55-1.3)
[2021-01-10] MEDS ORDERED: INSULIN (NOVOLOG) ASPART 100 UNITS/ML 10ML VIAL ONE (11:49)
[2021-01-10] MEDS ORDERED: SODIUM CHLORIDE 250 ML IV PRN (12:01)
[2021-01-10] MEDS: ATORVASTATIN CA 80 MG TABLET (FP) PO SCH (21:16)
[2021-01-10] MEDS: AMOX TR/POT CLAV 250MG/125MG TABLETS PO SCH (23:00)
[2021-01-11] MEDS: INSULIN SLIDING SCALE (NOVOLOG) 1 VIAL SQ SCH ×4 (06:14→21:42)
[2021-01-11 08:50] LABS: HEMATOCRIT 33.9 % (35.4-49); HEMOGLOBIN 11.3 GM/dL (11.7-16.9); MCH 32.8 pg (25.7-33.7); MCHC 33.3 g/dl (32.0-35.9); MEAN CELL VOLUME 98.5 fl (80-96); MEAN PLT VOLUME 8.6 fl (7.5-11.1); PLATELET COUNT 135 10^3/uL (134-434); RBC 3.44 M/mm3 (4.00-5.60); RDW 15.6 % (11.9-15.9); WHITE BLOOD COUNT 5.4 K/mm3 (4.0-10.0)
[2021-01-11 09:00] LABS: CHLORIDE 98 mmol/L (98-107); SODIUM 138 mmol/L (136-145)
[2021-01-11 09:02] LABS: ANION GAP 12 MMOL/L (8-16); BLOOD UREA NITROGEN 63.1 mg/dL (7-18); CO2 27 mmol/L (21-32); GLUCOSE,RANDOM 138 mg/dL (74-106)
[2021-01-11 09:05] LABS: PHOSPHOROUS 4.2 mg/dL (2.5-4.9)
[2021-01-11 09:53] LABS: CREATININE 10.1 mg/dL (0.55-1.3)
[2021-01-11] MEDS: SEVELAMER CARBONATE 800 MG TAB (FP) PO SCH ×3 (10:40→17:31)
[2021-01-11 10:52] LABS: CHOLESTEROL 93 mg/dL (50-200)
[2021-01-11 10:53] LABS: LDL CHOLESTEROL (ONLY SJRH) 27 mg/dL (5-100)
[2021-01-11] MEDS ORDERED: PT OWN MED DRAWER 7, Y5N ONE (10:55)
[2021-01-11 10:56] LABS: HDL CHOLESTEROL 51 mg/dL (40-60); TRIGLYCERIDES 105 mg/dL (0-150)
[2021-01-11] MEDS: AMOX TR/POT CLAV 250MG/125MG TABLETS PO SCH (11:11)
[2021-01-11] MEDS: amLODIPine BESYLATE 10 MG TABLET (FP) PO SCH (11:12)
[2021-01-11] MEDS: metoPROLOL SUCCINATE 25 MG TAB.SR.24H (FP) PO SCH (11:12)
[2021-01-11] MEDS: ASPIRIN COATED 81 MG TABLET.EC PO SCH (11:12)
[2021-01-11] MEDS: TAMSULOSIN HCL 0.4 MG CAP PO SCH (11:12)
[2021-01-11] MEDS: CLOPIDOGREL BISULFATE 75 MG TABLET (FP) PO SCH (11:12)
[2021-01-11] MEDS ORDERED: ACETAMINOPHEN 325 MG TABLET (FP) ONE (12:47)
[2021-01-11] MEDS ORDERED: ACETAMINOPHEN 325 MG TABLET (FP) PO PRN ×2 (13:19→18:14)
[2021-01-11] MEDS ORDERED: BUPIVACAINE HCL 50 ML ONE (16:21)
[2021-01-11] MEDS ORDERED: LIDOCAINE HCL 1%, 10 MG/ML (20ML VIAL) ONE (16:21)
[2021-01-11] MEDS ORDERED: ONDANSETRON 4 MG/2 ML VIAL IVPUSH PRN ×2 (16:25→18:14)
[2021-01-11] MEDS ORDERED: oxyCODONE HCL 5 MG TABLET PO PRN ×2 (16:25→18:14)
[2021-01-11] MEDS ORDERED: LIDOCAINE HCL/PF 2% SDV 5ML VIAL ONE (16:32)
[2021-01-11] MEDS ORDERED: PROPOFOL 20 ML ONE (16:33)
[2021-01-11] MEDS ORDERED: ETOMIDATE 20 MG/10 ML AMPUL IVPUSH ONE (16:33)
[2021-01-11] MEDS ORDERED: ROCURONIUM BROMIDE 50 MG/5 ML SYRINGE ONE (16:33)
[2021-01-11] MEDS ORDERED: SUCCINYLCHOLINE CHLORIDE 200 MG/10 ML SYRINGE ONE (16:34)
[2021-01-11] MEDS ORDERED: LIDOCAINE HCL 1% EPINEPHRINE 1:200,000 30 ML VIAL (PF) ONE (17:00)
[2021-01-11] MEDS ORDERED: DEXAMETHASONE SOD PHOSPHATE 4 MG/1 ML VIAL ONE (17:14)
[2021-01-11] MEDS ORDERED: LIDO 2%/EPI 1:200000 PRESRVFRE (20 ML SDVIAL) INF ONE (17:21)
[2021-01-11] MEDS ORDERED: NEOSTIGMINE METHYLSULFATE 0.5 MG/ML - 10 ML MDV ONE (17:32)
[2021-01-11] MEDS ORDERED: GLYCOPYRROLATE 0.2 MG/1 ML VIAL ONE (17:34)
[2021-01-11] MEDS ORDERED: DOXYCYCLINE HYCLATE 100 MG CAPSULE PO SCH (18:00)
[2021-01-11] MEDS ORDERED: SODIUM CHLORIDE 250 ML IV PRN (18:14)
[2021-01-11] MEDS: ATORVASTATIN CA 80 MG TABLET (FP) PO SCH (21:41)
[2021-01-12] MEDS: INSULIN SLIDING SCALE (NOVOLOG) 1 VIAL SQ SCH ×4 (06:17→21:35)
[2021-01-12 08:31] LABS: HEMATOCRIT 32.5 % (35.4-49); HEMOGLOBIN 11.1 GM/dL (11.7-16.9); MCH 33.5 pg (25.7-33.7); MCHC 34.1 g/dl (32.0-35.9); MEAN CELL VOLUME 98.2 fl (80-96); MEAN PLT VOLUME 8.1 fl (7.5-11.1); PLATELET COUNT 135 10^3/uL (134-434); RBC 3.31 M/mm3 (4.00-5.60); RDW 15.7 % (11.9-15.9)
[2021-01-12] MEDS: ASPIRIN COATED 81 MG TABLET.EC PO SCH (09:34)
[2021-01-12] MEDS: metoPROLOL SUCCINATE 25 MG TAB.SR.24H (FP) PO SCH (09:34)
[2021-01-12] MEDS: DOXYCYCLINE HYCLATE 100 MG CAPSULE PO SCH ×2 (09:34→18:00)
[2021-01-12] MEDS: CLOPIDOGREL BISULFATE 75 MG TABLET (FP) PO SCH (09:34)
[2021-01-12] MEDS: TAMSULOSIN HCL 0.4 MG CAP PO SCH (09:34)
[2021-01-12] MEDS: SEVELAMER CARBONATE 800 MG TAB (FP) PO SCH ×3 (09:35→18:00)
[2021-01-12] MEDS: amLODIPine BESYLATE 10 MG TABLET (FP) PO SCH (09:35)
[2021-01-12] MEDS ORDERED: SODIUM CHLORIDE 250 ML IV PRN (14:37)
[2021-01-12] MEDS ORDERED: PANTOPRAZOLE 40 MG TABLET PO ONE (18:00)
[2021-01-12] MEDS ORDERED: MAG HYDROX/AL HYDROX/SIMETH 30 ML UNIT-DOSE CUP PO ONE (20:00)
[2021-01-12] MEDS: ATORVASTATIN CA 80 MG TABLET (FP) PO SCH (21:31)
[2021-01-13] MEDS: INSULIN SLIDING SCALE (NOVOLOG) 1 VIAL SQ SCH ×2 (06:18→12:41)
[2021-01-13] MEDS: amLODIPine BESYLATE 10 MG TABLET (FP) PO SCH (09:49)
[2021-01-13] MEDS: TAMSULOSIN HCL 0.4 MG CAP PO SCH (09:49)
[2021-01-13] MEDS: metoPROLOL SUCCINATE 25 MG TAB.SR.24H (FP) PO SCH (09:49)
[2021-01-13] MEDS: CLOPIDOGREL BISULFATE 75 MG TABLET (FP) PO SCH (09:49)
[2021-01-13] MEDS: SEVELAMER CARBONATE 800 MG TAB (FP) PO SCH ×2 (09:49→12:41)
[2021-01-13] MEDS: DOXYCYCLINE HYCLATE 100 MG CAPSULE PO SCH (09:49)
[2021-01-13] MEDS: ASPIRIN COATED 81 MG TABLET.EC PO SCH (09:49)
[2021-01-13 10:54] VITALS: TEMP 98.3
[2021-01-13 11:37] LABS: HEMATOCRIT 33.3 % (35.4-49); HEMOGLOBIN 11.3 GM/dL (11.7-16.9); MCH 33.4 pg (25.7-33.7); MCHC 33.9 g/dl (32.0-35.9); MEAN CELL VOLUME 98.7 fl (80-96); MEAN PLT VOLUME 8.3 fl (7.5-11.1); PLATELET COUNT 140 10^3/uL (134-434); RBC 3.37 M/mm3 (4.00-5.60); RDW 15.9 % (11.9-15.9); WHITE BLOOD COUNT 10.4 K/mm3 (4.0-10.0)
[2021-01-13 12:09] LABS: BLOOD UREA NITROGEN 52.4 mg/dL (7-18)
[2021-01-13 12:12] LABS: CREATININE 7.3 mg/dL (0.55-1.3)
[2021-01-13 14:13] VITALS: BP 129/55; PULSE 75
== END 2021-01-13 16:33 | disposition home health service (06) | DRG 91 ==
LOC: JER 05:29 → JERBED 08:12 → J4W 15:16 → JERBED 15:16 → J4W 18:26
PROVIDERS: ADMIT Internal Medicine; ATTEND Internal Medicine
PROC: 5A1D70Z Performance of Urinary Filtration, Intermittent, Less than 6 Hours Per Day (ICD-10-PCS; principal; 2021-01-11 16:00)
DX: G92 Toxic encephalopathy (principal); N18.6 End stage renal disease; I13.0 Hypertensive heart and chronic kidney disease with heart failure and stage 1 through stage 4 chronic kidney disease, or unspecified chronic kidney disease; I25.10 Atherosclerotic heart disease of native coronary artery without angina pectoris; E78.5 Hyperlipidemia, unspecified; J44.9 Chronic obstructive pulmonary disease, unspecified; E11.22 Type 2 diabetes mellitus with diabetic chronic kidney disease; D63.1 Anemia in chronic kidney disease; I50.9 Heart failure, unspecified; T37.5X5A Adverse effect of antiviral drugs, initial encounter; Z87.891 Personal history of nicotine dependence
CPT/HCPCS: 36415; 70450-TC; 70490-TC; 71045-TC-FY; 80048; 80053; 80061; 80307; 82550; 82553; 82607; 82962; 83036; 83721; 83735; 83880; 84100; 84443; 84484; 85025; 85027; 85610; 85730; 86704; 86706; 86707; 86708; 86709; 86780; 86803; 86850; 86900; 86901; 87070; 87186; 87205; 87340; 93005; 93010; 93880-TC; 93971; 94760; C9803; J1644; U0003; U0005

== ENCOUNTER 2021-10-18 04:54 | Emergency (ER) | payer OTHER ==
[2021-10-18 05:03] VITALS: BP 153/91; PULSE 77; BMI 26.0
[2021-10-18] MEDS ORDERED: CALCIUM CHLORIDE 1 GM/10 ML *DISP.SYRIN ONE (05:15)
[2021-10-18] MEDS ORDERED: PROPOFOL 1,000,000 MCG/100 ML VIAL IVPB SCH (05:15)
[2021-10-18] MEDS ORDERED: EPINEPHrine 1:10,000 (P-F SYR) 1 MG/10 ML DISP.SYRIN ONE (05:27)
[2021-10-18] MEDS ORDERED: DOPAMINE 400 MG/D5W - 400,000 MCG/250 ML INFUS.BAG IVPB SCH (05:45)
[2021-10-18] MEDS ORDERED: MIDAZOLAM HCL 5 MG/1 ML Single Dose Vial IVPUSH ONE (05:57)
[2021-10-18 06:33] LABS: CHLORIDE 107 mmol/L (98-107); SODIUM 142 mmol/L (136-145)
[2021-10-18 06:35] LABS: ALBUMIN 4.1 g/dl (3.4-5.0); ANION GAP 11 MMOL/L (8-16); BLOOD UREA NITROGEN 55.9 mg/dL (7-18); CALCIUM 13.5 mg/dL (8.5-10.1); CO2 25 mmol/L (21-32); GLUCOSE,RANDOM 212 mg/dL (74-106)
[2021-10-18 06:38] LABS: SGOT/AST 21 U/L (15-37)
[2021-10-18 06:39] LABS: SGPT/ALT 21 U/L (13-61)
[2021-10-18 06:40] LABS: TOT PROT 7.1 g/dl (6.4-8.2)
[2021-10-18 06:41] LABS: ALK PHOS 105 U/L (45-117)
[2021-10-18 06:44] LABS: BASO % 0.3 % (0-2.0); EOS % 1.3 % (0-4.5); HEMATOCRIT 42.5 % (35.4-49); HEMOGLOBIN 13.8 GM/dL (11.7-16.9); LYMPH % 14.9 % (8-40); MCH 32.2 pg (25.7-33.7); MCHC 32.6 g/dl (32.0-35.9); MEAN PLT VOLUME 9.6 fl (7.5-11.1); MONO % 2.9 % (3.8-10.2); NEUT % 80.6 % (42.8-82.8); PLATELET COUNT 154 10^3/uL (134-434); RBC 4.29 M/mm3 (4.00-5.60); RDW 15.2 % (11.9-15.9); WHITE BLOOD COUNT 19.6 K/mm3 (4.0-10.0)
[2021-10-18 06:50] LABS: CREATININE 8.8 mg/dL (0.55-1.3)
[2021-10-18 07:05] LABS: INR 1.22 (0.83-1.09); PROTHROMBIN TIME (PATIENT) 14.1 SEC (9.7-13.0)
[2021-10-18 07:39] LABS: LACTIC ACID 4.7 mmol/L (0.4-2.0)
== END 2021-10-18 05:47 | disposition expired ==
LOC: JER 04:54
PROC: 0BH17EZ Insertion of Endotracheal Airway into Trachea, Via Natural or Artificial Opening (ICD-10-PCS; principal; 2021-10-18)
PROC: 06HM33Z Insertion of Infusion Device into Right Femoral Vein, Percutaneous Approach (ICD-10-PCS; 2021-10-18)
PROC: 3E033GC Introduction of Other Therapeutic Substance into Peripheral Vein, Percutaneous Approach (ICD-10-PCS; 2021-10-18)
DX: I46.9 Cardiac arrest, cause unspecified (principal); R06.03 Acute respiratory distress
CPT/HCPCS: 31500; 36415; 36556; 71045-TC-FY; 80053; 82962; 83605; 84484; 85025; 85610; 87040; 93005; 93010; 96372; 96374; 96375; 99285-25; C9803-CS; U0003; U0005